=== PATIENT | female | born 1950 | race Caucasian/White ===

== ENCOUNTER 2018-10-11 05:27 | Inpatient (IN) | payer MEDICARE ==
--- NOTE | 2018-09-22 10:13 | HP ---
PREOPERATIVE HISTORY AND PHYSICAL: DATE OF ADMISSION: 10/11/18 ATTENDING PHYSICIAN: Dr. Yaniv Dailey.* (DICTATED BY MARLENA KLEIN) CHIEF COMPLAINT: Right knee pain. HISTORY OF PRESENT ILLNESS: Ms. Gomes is a 68-year-old female known to Dr. Dailey for some time with arthritic problems with her right knee. She has had multiple Synvisc-One viscosupplementation injections and has used ice and antiinflammatory, without significant relief of her arthritic pain. Due to ongoing pain and disability, she now has elected to proceed with right total knee arthroplasty, which is scheduled with Dr. Dailey at [facility] [place] on 10/11/18. PAST MEDICAL HISTORY: Significant for hypertension, hypercholesterolemia, and insomnia. PAST SURGICAL HISTORY: She has had cholecystectomy, hysterectomy, open reduction and internal fixation of right ankle. She has had arthroscopy of the knee. CURRENT MEDICATIONS: 1. Ambien 5 mg p.o. q.h.s. p.r.n. for insomnia. 2. Valsartan 160 mg p.o. daily. 3. Tylenol with Codeine q.h.s. p.r.n. for pain and insomnia. FAMILY HISTORY: Significant for her father having lung cancer, mother with a history of leukemia, brother with cardiac problems with valve replacement and quadruple bypass surgery. SOCIAL HISTORY: The patient lives with her . She is retired from [employer]. She denies use of tobacco or illegal drugs. She states she drinks roughly 2 beers per day. REVIEW OF SYSTEMS: A 14-point review of systems was reviewed with the patient today and is positive for intermittent heart murmur, heart palpitations, and chronic back pain. Otherwise, negative. PHYSICAL EXAMINATION GENERAL: She is alert and oriented x3, in no acute distress, pleasant and cooperative, appropriate mood and affect. VITAL SIGNS: Height 66 inches, weight 181. Pulse 84, BP 158/80. HEENT: PERRLA. EOMI. LUNGS: Clear to auscultation without wheeze. HEART: Murmur auscultated. Regular rate and rhythm. ABDOMEN: Nontender, nondistended, normoactive bowel sounds x4 quadrants. EXTREMITIES: Right Lower Extremity: Her right knee shows no open areas or excoriations. She has motion from less than 5 degrees to about 110 degrees of flexion with pain. There is no instability to varus or valgus stresses. NEUROLOGIC: Sensation and circulation are intact distally. She has active dorsiflexion of the right ankle. Calf is nontender without swelling. IMPRESSION: Advanced osteoarthritis, right knee. PLAN: The patient has failed conservative management and now elects to proceed with right total knee arthroplasty. She is scheduled for surgery with Dr. Yaniv Dailey on 10/11/18 at [facility] [place]. She will undergo medical clearance prior to the procedure. The risks and benefits of the procedure were fully reviewed with Dr. Dailey at his office visit today 09/08/18. MARLENA KLEIN [id number]/ASHLIE #: [id number] MTDD
[~2018-10-11 05:27] MED LIST: Buffered Lidocaine 1% SYRIN* 1 ML/SYRINGE INTRADERM ONE; Lactated Ringers 1000 ML Bag* 1,000 ML IV SCH; Tranexamic Acid 1,000 MG in NS 0.9% 50 ML* (outpatient use) IV SCH
--- OUTSIDE RECORDS SUMMARY | 2018-10-11 05:30 | XMS REPORT | Continuity of Care Document ---
:1950 External Reference #:[id number] Author Name Trisha Babcock M.D. Address [address] [facility] [place] [address] Care Team Providers Name Role Phone Trisha Babcock M.D. 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 Primary Care Physician Unavailable Payers Date Identification Numbers Payment Provider Subscriber Effective: 2017 Policy Number: [id number] [employer] Ppo Kim Orlando PayID: [id number] [id number] [place] [address] Problems Active Problems Provider Date Disorder of urethra Birgit Rodriguez M.D. Onset: 04/25/2011 Insomnia Birgit Rodriguez M.D. Onset: 04/25/2011 Benign essential hypertension Rosendo Woodruff M.D. Onset: 05/31/2013 Essential hypertension Trisha Babcock M.D. Onset: 06/20/2015 Impaired fasting glycaemia Trisha Babcock M.D. Onset: 08/27/2017 Hyperlipidemia Trisha Babcock M.D. Onset: 08/27/2017 Localized, primary osteoarthritis Trisha Babcock M.D. Onset: 09/01/2018 Resolved Problems Adult health examination Birgit Rodriguez M.D. Onset: 04/25/2011 Resolved: 06/20/2015 FH: Cardiovascular disease Birgit Rodriguez M.D. Onset: 04/25/2011 Resolved: 06/20/2015 Acute maxillary sinusitis Rosendo Woodruff M.D. Onset: 2011 Resolved: 06/20/2015 Family History Date Family Member(s) Observation Comments Father due to Throat () - smoker, Cancer at 75 Mother due to Leukemia () - at 72 Onset: (age 38 First Son Colon Cancer Years) First Son due to Colon () Cancer First Brother Good Health twin brother Onset: First Brother Coronary Artery Disease Stents x 3 (02/01/2018) (CAD) Second Brother Hypertension Second Brother Glaucoma Second Brother Coronary Artery Disease (CAD) Third Brother Hypertension Third Brother Coronary Artery Disease (CAD) First Sister Good Health Number of Grandchildren 8 Paternal Grandfather due to Diabetes () Paternal Grandmother due to Heart () - in Disease her 50s Maternal Grandfather due to Aneurysm () - Aortic Social History Type Date Description Comments Sex Unknown Marital Status Patient is Living Situation Lives with spouse Diet Diet is healthy and well balanced--lactose intolerant Sleep occasional insomnia 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 Tobacco Use Start: Unknown End: Former Cigarette Smoker quit in 1996 Unknown 1/2 Pack Daily ETOH Use Consumes 1 beer per day Tobacco Use Start: Unknown End: Patient is a former Unknown smoker Smoking Status Reviewed: 09/01/18 Patient is a former smoker Exercise Exercises sporadically Type/Frequency Current trying to walk Allergies, Adverse Reactions, Alerts Active Allergies Reaction Severity Comments Date NKDA 04/25/2011 Environmental 06/16/2014 Inactive Allergies Nka 12/15/2005 Medications Active Medications SIG Qnty Indications Ordering Provider Date Acetaminophen-Codeine 1-2 tab by mouth 60tabs M17.11 [facility], 2018 #3 bedtime as needed M.D. 300-30mg Tablets Valsartan Take 1 Tablet By 90tabs I10 Nirali Kirkpatrick 02/01/2018 160mg Tablets Mouth Every Day SHAUNNA Franks Ambien 1 by mouth every 30tabs G47.00 [facility], 10/20/2005 5mg Tablets night at bedtime M.D. as needed sleep Ibuprofen 200 2 by mouth twice Unknown 200mg a day Tablets History Medications Hydrochlorothiazide Take 1 Capsule 90caps I10 Nirali Kirkpatrick 02/01/2018 - 12.5mg By Mouth Every SHAUNNA Franks 09/02/2018 Capsules Day In The Morning Valsartan-Hydrochlorothia 1 by mouth every 90tabs I10 Deonna 11/30/2017 - zide day Abigail, 02/01/2018 160-12.5mg Tablets Afnp-C Valsartan Take 1 tablet 90tabs Nirali Kirkpatrick 10/12/2017 - 160mg Tablets daily SHAUNNA Franks 11/30/2017 Losartan Potassium Take 3 Tablets 30tabs Piedad Barba, 10/05/2017 - 25mg Tablets Every Day Failed [facility] 10/06/2017 on Irbesartin 300mg qd Valsartan 1 by mouth every 30tabs Piedad Barba, 10/05/2017 - 80mg Tablets day [employer] 10/12/2017 Irbesartan 2 tab by mouth 90tabs Trisha Mcgrann, 08/26/2017 - 150mg Tablets every day M.D. 10/07/2017 Medrol take dose pack 1units M79.672 Nirali Kirkpatrick 06/23/2017 - 4mg TBPK as directed SHAUNNA Franks 08/25/2017 Irbesartan 1 by mouth every 30tabs [facility], 04/09/2017 - 75mg Tablets day M.D. 08/26/2017 Losartan Potassium Take 3 Tablets 90tabs [facility], 08/22/2016 - 25mg Tablets Every Day M.D. 06/22/2017 Macrobid 1 by mouth twice 10caps N39.0 Lenore 07/06/2015 - 100mg Capsules a day [facility], [facility] 05/13/2016 Prednisone 1 twice a day x 14tabs 729.5 Piedad Barba, 05/22/2014 - 20mg Tablets 7d [facility] 06/16/2014 Bactrim DS 1 po bid for ten 20tabs Rosendo Field 05/27/2013 - 800-160mg Tablets days Esme Woodruff 12/01/2013 Losartan Potassium Take 1 Tablet By 90tabs I10 Trisha Babcock, 05/20/2013 - 25mg Tablets Mouth Every Day M.D. 07/26/2016 Cephalexin one tab po tid 42tabs Rosendo Field 05/29/2012 - 500mg Tablets for 14 days Esme Woodruff 06/25/2012 Fexofenadine 1 po qd 20tabs 381.01 Rosendo Field 05/19/2012 - HCL/Pseudoephedrine HCL Esme Woodruff 06/25/2012 ER 180-240mg Tablets ER 24HR Augmentin one tab po bid 20tabs 461.0 Rosendo Field 2011 - 500-125mg Tablets for ten days Esme Woodruff 05/19/2012 Cipro 1 po bid 14tabs Jesus Chaidez 11/01/2010 - 250mg Tablets Esme Marcum 04/25/2011 Premarin 1 katie per vag 1Month Lenore oliva 04/10/2010 - 0.625mg/GM Cream 2-3 times weekly Esme Arredondo 04/25/2011 Amoxicillin 1 po tid x 5 d 15caps 599.0 Nat Lenz 01/08/2010 - 250mg Capsules Esme Santoyo 04/10/2010 Bactrim DS 1 by mouth twice 14tabs 599.0 Deonna 01/08/2010 - 800-160mg Tablets a day x 7 [facility], 05/21/2014 Afnp-C Ciprofloxacin HCL 1 po bid x 7d 14tabs Dick Koroma 08/23/2009 - 250mg Tablets Esme Magaña 08/30/2009 Pyridium 1 po tid prn 15tabs Dick Koroma 08/23/2009 - 200mg Tablets Esme Magaña 01/08/2010 Augmentin 1 po bid with 20tabs 461.9 Aneta Warner 07/06/2009 - 875mg Tablets ziggy Snyder M.D. 08/23/2009 Bactrim DS 1 po bid 10tabs Lenore oliva 03/28/2009 - 800-160mg Tablets Esme Arredondo 07/06/2009 Elocon apply to 45gm Rosendo Field 03/01/2008 - 0.1% Cream affected area Esme Woodruff 05/21/2014 bid Zyrtec-D 1 po bid prn 60tabs Lenore oliva 03/01/2008 - Tablets ER 12HR Esme Arredondo 07/06/2009 Westcort apply sparingly 60gm 989.5 Piedad Barba, 08/13/2007 - 0.2% Cream bid prn [employer] 03/01/2008 Bactroban apply tid to 30gm 989.5 Piedad Barba, 08/13/2007 - 2% Cream affected area [employer] 03/01/2008 for 3-5D Lab Order please draw Lenore oliva 01/04/2007 - fasting lipidsMaria Elena M.D. 06/10/2007 p33, cbc and TSH dx: hyperlipidemia, HTN Augmentin 1 po bid with 20tabs 461.9 Piedad Jameson, 06/19/2006 - 875mg;125 mg Tablets food X 10D [employer] 12/30/2006 Entex Pse 1 PO Q12 Hours 20tabs 461.9 Sailaja Blas, 04/21/2006 - 600mg;120 mg Tablets prn Head [facility]np-[facility] 05/01/2006 Congestion Augmentin 1 po bid with 20tabs 461.9 Marcelo T. 04/21/2006 - 875mg Tablets food Esme Edwards 08/13/2007 Biaxin 1 PO bid X10 20tabs Deonna 12/15/2005 - 500mg Tablets Days [facility], 12/25/2005 Afnp-C Entex Pse 1 PO Q12 Hours 20tabs Deonna 12/15/2005 - 600mg;120 mg Tablets prn Head [facility], 12/25/2005 Congestion Afnp-C Elocon apply to 30gm Lenore oliva 10/20/2005 - 0.1% Cream affected area Esme Arredondo 06/10/2007 bid Mammogram dx routine Lenore oliva 10/20/2005 - mammogram Esme Arredondo 12/15/2005 Claritin 1 po qd 30caps Unknown - 10mg Capsules 01/08/2010 Sudafed 1-2 po qid prn 30tabs Unknown - 30mg Tablets sinus congestion 01/08/2010 Claritin 1 po qd Unknown - 10mg Tablets 05/21/2014 Zyrtec Allergy 1 by mouth every Unknown - 10mg Tablets day 07/06/2015 Naproxen 1 by mouth twice Unknown - 500mg Tablets a day with food 06/22/2017 Immunizations CPT Code Status Date Vaccine Lot # [id number] Given 12/30/2017 High-Dose, Influenza Virus Vacccine-fluzone 65 and older 82002 Given 08/26/2017 Pneumococcal Immunization [id number] Given 12/11/2016 High-Dose, Influenza Virus Vacccine-fluzone 65 and older 54097 Given 08/22/2016 Pneumococcal Conjugate Vacc-13 [id number] 17616 Given 12/26/2015 Influenza vac quadrivalent preservative free 3yrs and up 63051 Given 05/20/2013 Zostivax [id number] 81347 Given 03/28/2009 Tetanus And Diptheria Adult Preservative Free [id number] >7Yrs 92000 Given 12/30/2006 DO Not Use Split Influenza Virus Vaccine [id number] Vital Signs Date Vital Result Comment 09/14/2018 2:55pm BP Systolic 136 mmHg BP Diastolic 72 mmHg Heart Rate 72 /min Body Temperature 97.7 F Respiratory Rate 16 /min Height 65.5 inches 5'5.50" Weight 193.00 lb BMI (Body Mass Index) 31.6 kg/m2 09/01/2018 7:57am BP Systolic 110 mmHg BP Diastolic 80 mmHg Heart Rate 72 /min Body Temperature 98.2 F Respiratory Rate 18 /min Height 65.5 inches 5'5.50" Weight 191.00 lb BMI (Body Mass Index) 31.3 kg/m2 02/01/2018 6:58pm BP Systolic 144 mmHg BP Diastolic 80 mmHg Heart Rate 68 /min Body Temperature 98.2 F Respiratory Rate 16 /min Height 65.75 inches 5'5.75" measured 06/20/15 Weight 189.00 lb BMI (Body Mass Index) 30.7 kg/m2 01/04/2018 3:14pm BP Systolic 124 mmHg BP Diastolic 68 mmHg Heart Rate 60 /min Body Temperature 97.5 F Respiratory Rate 16 /min Height 65.75 inches 5'5.75" measured 06/20/15 Weight 185.00 lb BMI (Body Mass Index) 30.1 kg/m2 11/30/2017 3:04pm BP Systolic 148 mmHg BP Diastolic 88 mmHg Heart Rate 66 /min Body Temperature 98.0 F Respiratory Rate 16 /min Height 65.75 inches 5'5.75" measured 06/20/15 Weight 186.00 lb BMI (Body Mass Index) 30.2 kg/m2 10/05/2017 3:04pm BP Systolic 144 mmHg BP Diastolic 90 mmHg Heart Rate 64 /min Body Temperature 97.4 F Respiratory Rate 16 /min Height 65.75 inches 5'5.75" measured 06/20/15 Weight 188.00 lb BMI (Body Mass Index) 30.6 kg/m2 08/26/2017 9:05am BP Systolic 160 mmHg BP Diastolic 80 mmHg Heart Rate 74 /min Body Temperature 97.9 F Respiratory Rate 16 /min Height 65.75 inches 5'5.75" measured 06/20/15 Weight 186.00 lb BMI (Body Mass Index) 30.2 kg/m2 06/23/2017 2:39pm BP Systolic 166 mmHg BP Diastolic 82 mmHg Heart Rate 84 /min Body Temperature 98.6 F Height 65.75 inches 5'5.75" measured 06/20/15 Weight 189.00 lb BMI (Body Mass Index) 30.7 kg/m2 08/22/2016 9:36am BP Systolic 138 mmHg BP Diastolic 80 mmHg Heart Rate 78 /min Body Temperature 97.0 F Height 65.75 inches 5'5.75" measured 06/20/15 Weight 190.38 lb BMI (Body Mass Index) 31.0 kg/m2 07/26/2016 9:47am BP Systolic 180 mmHg BP Diastolic 100 mmHg Heart Rate 68 /min Body Temperature 96.9 F Respiratory Rate 16 /min Height 65.75 inches 5'5.75" measured 06/20/15 Weight 190.25 lb BMI (Body Mass Index) 30.9 kg/m2 05/13/2016 3:10pm BP Systolic 120 mmHg BP Diastolic 70 mmHg Heart Rate 60 /min Body Temperature 98.5 F Respiratory Rate 18 /min Height 65.75 inches 5'5.75" measured 06/20/15 Weight 194.00 lb BMI (Body Mass Index) 31.5 kg/m2 07/06/2015 1:37pm BP Systolic 160 mmHg BP Diastolic 90 mmHg Heart Rate 72 /min Body Temperature 96.1 F Respiratory Rate 16 /min Height 65.75 inches 5'5.75" measured 06/20/15 Weight 186.00 lb BMI (Body Mass Index) 30.2 kg/m2 06/20/2015 9:10am BP Systolic 124 mmHg BP Diastolic 80 mmHg Heart Rate 72 /min Body Temperature 97.0 F Respiratory Rate 16 /min Height 65.75 inches 5'5.75" measured 06/20/15 Weight 185.25 lb BMI (Body Mass Index) 30.1 kg/m2 06/16/2014 7:53am BP Systolic 140 mmHg BP Diastolic 80 mmHg Heart Rate 60 /min Body Temperature 96.7 F Respiratory Rate 12 /min Height 66 inches 5'6" Weight 183.00 lb BMI (Body Mass Index) 29.5 kg/m2 05/22/2014 2:47pm BP Systolic 146 mmHg BP Diastolic 80 mmHg Heart Rate 78 /min Body Temperature 97.2 F Height 65.5 inches 5'5.50" Weight 188.00 lb BMI (Body Mass Index) 30.8 kg/m2 01/24/2014 11:39am BP Systolic 130 mmHg BP Diastolic 80 mmHg Heart Rate 68 /min Body Temperature 98.2 F Respiratory Rate 18 /min Height 65.5 inches 5'5.50" 12/02/2013 9:06am BP Systolic 124 mmHg BP Diastolic 90 mmHg Heart Rate 66 /min Body Temperature 95.6 F Height 65.5 inches 5'5.50" Weight 181.50 lb BMI (Body Mass Index) 29.7 kg/m2 05/31/2013 3:00pm BP Systolic 124 mmHg BP Diastolic 82 mmHg Heart Rate 84 /min Body Temperature 95.4 F Height 65.5 inches 5'5.50" Weight 181.38 lb BMI (Body Mass Index) 29.7 kg/m2 05/20/2013 10:44am BP Systolic 146 mmHg BP Diastolic 88 mmHg Heart Rate 64 /min Body Temperature 96.0 F Respiratory Rate 16 /min Height 65.5 inches 5'5.50" Weight 178.25 lb BMI (Body Mass Index) 29.2 kg/m2 06/25/2012 10:23am BP Systolic 142 mmHg BP Diastolic 92 mmHg Heart Rate 78 /min Body Temperature 97.1 F Height 66 inches 5'6" Weight 174.00 lb BMI (Body Mass Index) 28.1 kg/m2 05/19/2012 8:15am BP Systolic 136 mmHg BP Diastolic 80 mmHg Heart Rate 60 /min Body Temperature 98.6 F Respiratory Rate 16 /min Height 66 inches 5'6" Weight 170.00 lb BMI (Body Mass Index) 27.4 kg/m2 2011 9:52am BP Systolic 146 mmHg BP Diastolic 96 mmHg Heart Rate 74 /min Body Temperature 98.6 F Height 66 inches 5'6" Weight 190.00 lb BMI (Body Mass Index) 30.7 kg/m2 04/25/2011 10:27am BP Systolic 122 mmHg BP Diastolic 82 mmHg Heart Rate 68 /min Body Temperature 97.7 F Respiratory Rate 14 /min Height 66 inches 5'6" Weight 192.00 lb BMI (Body Mass Index) 31.0 kg/m2 11/01/2010 1:15pm BP Systolic 140 mmHg BP Diastolic 80 mmHg Heart Rate 64 /min Body Temperature 97.3 F Respiratory Rate 20 /min Height 66 inches 5'6" Weight 191.00 lb BMI (Body Mass Index) 30.8 kg/m2 04/10/2010 10:02am BP Systolic 122 mmHg BP Diastolic 80 mmHg Heart Rate 68 /min Body Temperature 97.7 F Respiratory Rate 15 /min Height 66 inches 5'6" Weight 192.00 lb BMI (Body Mass Index) 31.0 kg/m2 01/08/2010 10:33am BP Systolic 132 mmHg BP Diastolic 100 mmHg Heart Rate 68 /min Body Temperature 97.7 F Height 66 inches 5'6" Weight 187.00 lb BMI (Body Mass Index) 30.2 kg/m2 08/23/2009 10:12am BP Systolic 150 mmHg BP Diastolic 88 mmHg Heart Rate 80 /min Body Temperature 97.8 F Height 66 inches 5'6" Weight 188.00 lb BMI (Body Mass Index) 30.3 kg/m2 07/06/2009 10:44am BP Systolic 162 mmHg BP Diastolic 90 mmHg Heart Rate 60 /min Body Temperature 97.6 F Respiratory Rate 12 /min Weight 190.00 lb 03/28/2009 8:55am BP Systolic 130 mmHg BP Diastolic 80 mmHg Heart Rate 80 /min Body Temperature 97.8 F Height 66 inches 5'6" Weight 185.00 lb BMI (Body Mass Index) 29.9 kg/m2 03/01/2008 9:16am BP Systolic 120 mmHg BP Diastolic 80 mmHg Heart Rate 80 /min Body Temperature 97.5 F Height 66 inches 5'6" Weight 174.00 lb BMI (Body Mass Index) 28.1 kg/m2 08/13/2007 4:02pm BP Systolic 130 mmHg BP Diastolic 78 mmHg Heart Rate 78 /min Respiratory Rate 13 /min Height 66 inches 5'6" 06/10/2007 2:42pm BP Systolic 142 mmHg BP Diastolic 80 mmHg Heart Rate 84 /min Body Temperature 97.3 F Height 66 inches 5'6" 12/30/2006 1:57pm BP Systolic 128 mmHg BP Diastolic 80 mmHg Heart Rate 88 /min Body Temperature 97.9 F Height 66 inches 5'6" Weight 181.00 lb BMI (Body Mass Index) 29.2 kg/m2 06/19/2006 1:06pm BP Systolic 120 mmHg BP Diastolic 76 mmHg Heart Rate 74 /min Body Temperature 97.6 F Height 66 inches 5'6" Weight 188.00 lb BMI (Body Mass Index) 30.3 kg/m2 04/21/2006 1:03pm Heart Rate 72 /min Body Temperature 98.5 F Height 66 inches 5'6" Weight 190.00 lb BMI (Body Mass Index) 30.7 kg/m2 12/15/2005 1:42pm BP Systolic 134 mmHg BP Diastolic 70 mmHg Heart Rate 80 /min Body Temperature 97.7 F Height 66 inches 5'6" Weight 185.00 lb BMI (Body Mass Index) 29.9 kg/m2 10/20/2005 2:29pm BP Systolic 110 mmHg BP Diastolic 66 mmHg Heart Rate 80 /min Height 66 inches 5'6" Weight 183.00 lb BMI (Body Mass Index) 29.5 kg/m2 Results Test Date Facility Test Result H/L Range Note Electrolytes Profile 09/10/2018 [facility]) Sodium 131 mEq/L Low 134-149 1 Potassium 4.5 mEq/L 3.6-5.5 Chloride 89 mEq/L Low 94-112 2 Carbon Dioxide 30 mEq/L 21-32 Anion Gap 16.5 7.0-34.0 Comprehensive Metabolic 09/01/2018 [facility]) Sodium 123 mEq/L Low 134-149 3 Prof Potassium 4.7 mEq/L 3.6-5.5 Chloride 84 mEq/L Low 94-112 4 Carbon Dioxide 24 mEq/L 21-32 Glucose 113 mg/dL High 70-105 5 BUN 9 mg/dL 6-26 Creatinine 0.7 mg/dL 0.6-1.4 BUN/Creat Ratio 12.9 CALC 8.0-36.0 Calcium 9.9 mg/dL 8.6-10.2 Total Protein 7.3 g/dL 6.4-8.3 Albumin 4.7 g/dL 3.8-5.5 Globulin 2.6 g/dL 2.0-4.8 A/G Ratio 1.8 CALC 0.6-2.3 Alk. Phosphatase 56 U/L 30-110 Alt (SGPT) 10 U/L 7-35 Ast (Sgot) 17 U/L 5-34 Total Bilirubin 0.8 mg/dL 0.2-1.3 GFR Non- >60 ml/min/1.73m^ >=60 GFR >60 ml/min/1.73m^ >=60 Lipid Profile 09/01/2018 [facility]) Cholesterol 222 mg/dL High 120-200 Triglycerides 84 mg/dL 30-200 HDL Cholesterol 72 mg/dL 30-85 LDL (Calculated) 133 CALC High 0-129 VLDL Cholesterol 17 mg/dL 0-50 HDL Risk Factor 3.1 CALC 0.0-4.4 Laboratory test finding 09/01/2018 [facility]) TSH 5.04 mIU/L 0.50-6.00 CBC Electronic a 09/01/2018 [facility]) WBC 5.8 x10^3/UL 4.0- 10.0 RBC 4.26 x10^6/UL 3.93-6.00 HGB 13.1 g/dL 12.0-17.0 HCT 37 % 35-50 MCV 86.6 fL 80.0-95.0 MCH 30.8 pg 25.6-32.2 MCHC 35.5 g/dL 32.2-36.0 RDW-CV 12.5 % 11.6-14.4 PLT 353 x10^3/UL 163-400 MPV 8.2 fL Low 9.4-12.4 Jose Alejandro# 3.85 x10^3/UL 1.56-6.13 Lymph# 1.28 x10^3/UL 1.18-3.74 Bullock# 0.57 x10^3/UL 0.24-0.82 Eos # 0.1 x10^3/UL 0.0-0.5 Baso # 0.02 x10^3/UL 0.01-0.08 Jose Alejandro% 66.4 % 34.0-70.0 Lymph % 22.1 % 20.0-52.0 Bullock% 9.8 % 5.0-12.0 Eos% 0.9 % 0.7-7.0 Baso% 0.3 % 0.1-1.2 Laboratory test 09/01/2018 [facility] [place] Hemoglobin A1c 5.7 % 4.1-5.7 finding (607)- - (a) Comprehensive 08/26/2017 [facility]) Sodium 139 mEq/L 134-149 Metabolic Prof Potassium 4.3 mEq/L 3.6-5.5 Chloride 101 mEq/L 94-112 Carbon Dioxide 29 mEq/L 21-32 Glucose 112 mg/dL High 70-105 BUN 14 mg/dL 6-26 Creatinine 0.7 mg/dL 0.6-1.4 BUN/Creat Ratio 20.0 CALC 8.0-36.0 Calcium 9.4 mg/dL 8.6-10.2 Total Protein 7.1 g/dL 6.4-8.3 Albumin 4.4 g/dL 3.8-5.5 Globulin 2.7 g/dL 2.0-4.8 A/G Ratio 1.6 CALC 0.6-2.3 Alk. Phosphatase 60 U/L 30-110 Alt (SGPT) 8 U/L 7-35 Ast (Sgot) 12 U/L 5-34 Total Bilirubin 0.5 mg/dL 0.2-1.3 GFR Non- >60 ml/min/1.73m^ >=60 GFR >60 ml/min/1.73m^ >=60 Lipid Profile 08/26/2017 [facility]) Cholesterol 233 mg/dL High 120-200 Triglycerides 109 mg/dL 30-200 HDL Cholesterol 72 mg/dL 30-85 LDL (Calculated) 139 CALC High 0-129 VLDL Cholesterol 22 mg/dL 0-50 HDL Risk Factor 3.2 CALC 0.0-4.4 Laboratory test 08/26/2017 [facility]) Free T4 1.20 ng/dL 0.75- 1.54 finding TSH 3.86 mIU/L 0.50-6.00 CBC Electronic a 08/26/2017 [facility]) WBC 4.7 x10^3/UL 4.0- 10.0 RBC 4.66 x10^6/UL 3.93-6.00 HGB 14.2 g/dL 12.0-17.0 HCT 42 % 35-50 MCV 89.7 fL 80.0-95.0 MCH 30.5 pg 25.6-32.2 MCHC 34.0 g/dL 32.2-36.0 RDW-CV 13.3 % 11.6-14.4 PLT 364 x10^3/UL 163-400 MPV 9.1 fL Low 9.4-12.4 Jose Alejandro# 3.00 x10^3/UL 1.56-6.13 Lymph# 1.19 x10^3/UL 1.18-3.74 Bullock# 0.45 x10^3/UL 0.24-0.82 Eos # 0.0 x10^3/UL 0.0-0.5 Baso # 0.01 x10^3/UL 0.01-0.08 Jose Alejandro% 63.8 % 34.0-70.0 Lymph % 25.3 % 20.0-52.0 Bullock% 9.6 % 5.0-12.0 Eos% 0.9 % 0.7-7.0 Baso% 0.2 % 0.1-1.2 Ua - Micro ([facility]) 08/22/2016 [facility] Medicine Appearance cloudy (607)- - Color yellow Glucose, Urine (Fma/CMC/CTX) neg Bilirubin neg Ketones neg SP Grav 1.015 Blood small # PH 7.0 Protein neg Urobil 0.2 Nitrite positive # Leukocytes ([facility]ma/CMC/Centrex) trace # Hyaline - /Lpf Granular - /Lpf WBC ([facility]ma,Centrex) 6-8 # RBC 3-4 ## Mucus (Fma/CBC/Centrex) - /Lpf Epith occass /Lpf # Bacteria 4+ /Hpf # Amorphous ([facility]ma/CMC/Centrex) - /Lpf Crystals, Fluid ([facility]ma/CMC/CTX) - Z#Comments - Complete Blood Count 08/22/2016 [facility](a) WBC 5.5 x10^3/UL 3.6 -9.6 RBC 4.25 x10^6/UL 3.90-5.70 HGB 13.3 g/dL 12.1-17.2 HCT 39 % 36-50 MCV 91.0 fL 82.2-97.4 MCH 31.3 pg 27.6-33.3 MCHC 34.2 g/dL 33.0-35.5 RDW 13.9 % High 11.6-13.7 PLT 388 x10^3/UL 150-400 MPV 6.9 fL Low 7.4-10.4 Gran # 3.8 x10^3/UL 1.5-7.2 Lymph# 1.4 x10^3/UL 0.7-4.9 Bullock# 0.3 x10^3/UL 0.1-0.9 Gran % 67.1 % 42.2-75.2 Lymph % 27.0 % 20.5-51.1 Bullock% 5.9 % 1.7-9.3 Comprehensive Metabolic 08/22/2016 [facility]) Sodium 137 mEq/L 134-149 Prof Potassium 4.0 mEq/L 3.6-5.5 Chloride 100 mEq/L 94-112 Carbon Dioxide 25 mEq/L 21-32 Glucose 110 mg/dL High 70-105 BUN 13 mg/dL 6-26 Creatinine 0.7 mg/dL 0.6-1.4 BUN/Creat Ratio 18.6 CALC 8.0-36.0 Calcium 9.3 mg/dL 8.6-10.2 Total Protein 6.8 g/dL 6.4-8.3 Albumin 4.3 g/dL 3.8-5.5 Globulin 2.5 g/dL 2.0-4.8 A/G Ratio 1.7 CALC 0.6-2.3 Alk. Phosphatase 57 U/L 30-110 Alt (SGPT) 11 U/L 7-35 Ast (Sgot) 17 U/L 5-34 Total Bilirubin 0.6 mg/dL 0.2-1.3 GFR Non- >60 ml/min/1.73m^ >=60 GFR >60 ml/min/1.73m^ >=60 Lipid Profile 08/22/2016 [facility]) Cholesterol 233 mg/dL High 120-200 Triglycerides 81 mg/dL 30-200 HDL Cholesterol 72 mg/dL 30-85 LDL (Calculated) 145 CALC High 0-129 VLDL Cholesterol 16 mg/dL 0-50 HDL Risk Factor 3.2 CALC 0.0-4.4 Urine Culture 07/06/2015 [facility] Urine Culture, Final report Abnormal 6 , 7 Routine [address] [facility] [place] [address] (607)- - Result 1 Escherichia coli Abnormal 8 Antimicrobial Susceptibility See Comment: 9 Ua - Micro ([facility]) 07/06/2015 [facility] Appearance CLEAR (607)- - Color YELLOW Glucose, Urine ([facility]/CMC/CTX) NEG Bilirubin NEG Ketones NEG SP Grav <=1.005 Blood TRACE-INTACT # PH 6.5 Protein NEG Urobil 0.2 Nitrite NEG Leukocytes ([facility]/CMC/Centrex) TRACE # Hyaline - /Lpf Granular - /Lpf WBC ([facility],Centrex) 15-20 # RBC 3-5 # Mucus ([facility]ma/CBC/Centrex) - /Lpf Epith RARE /Lpf # Bacteria 2+ /Hpf # Amorphous ([facility]ma/CMC/Centrex) - /Lpf Crystals, Fluid ([facility]/CMC/CTX) - Z#Comments - Comprehensive Metabolic 06/20/2015 [facility]) Sodium 140 mEq/L 134-149 Prof Potassium 5.0 mEq/L 3.6-5.5 Chloride 103 mEq/L 94-112 Carbon Dioxide 24 mEq/L 21-32 Glucose 105 mg/dL 70-105 BUN 14 mg/dL 6-26 Creatinine 0.7 mg/dL 0.6-1.4 BUN/Creat Ratio 20.0 CALC 8.0-36.0 Calcium 10.1 mg/dL 8.6-10.2 Total Protein 7.3 g/dL 6.4-8.3 Albumin 4.2 g/dL 3.8-5.5 Globulin 3.1 g/dL 2.0-4.8 A/G Ratio 1.4 CALC 0.6-2.3 Alk. Phosphatase 56 U/L 30-110 Alt (SGPT) 11 U/L 7-35 Ast (Sgot) 16 U/L 5-34 Total Bilirubin 0.5 mg/dL 0.2-1.3 GFR Non- >60 ml/min/1.73m^ >=60 GFR >60 ml/min/1.73m^ >=60 Lipid Profile 06/20/2015 [facility]) Cholesterol 236 mg/dL High 120-200 Triglycerides 75 mg/dL 30-200 HDL Cholesterol 70 mg/dL 30-85 LDL (Calculated) 151 CALC High 0-129 VLDL Cholesterol 15 mg/dL 0-50 HDL Risk Factor 3.4 CALC 0.0-4.4 Complete Blood Count 06/20/2015 [facility]) WBC 4.9 x10^3/UL 3.6 -9.6 RBC 4.70 x10^6/UL 3.90-5.70 HGB 14.7 g/dL 12.1-17.2 HCT 43 % 36-50 MCV 92.0 fL 82.2-97.4 MCH 31.3 pg 27.6-33.3 MCHC 34.0 g/dL 33.0-35.5 RDW 13.1 % 11.6-13.7 PLT 370 x10^3/UL 150-400 MPV 7.2 fL Low 7.4-10.4 Gran # 3.3 x10^3/UL 1.5-7.2 Lymph# 1.4 x10^3/UL 0.7-4.9 Bullock# 0.2 x10^3/UL 0.1-0.9 Gran % 65.9 % 42.2-75.2 Lymph % 29.6 % 20.5-51.1 Bullock% 4.5 % 1.7-9.3 Laboratory test 04/01/2015 [facility] Lab Test urine C&S finding (607)- - Laboratory test 12/08/2014 [facility] Surgical SEE RESULT 10 finding Pathology BELOW Comprehensive 06/16/2014 Saúl Rosenberg(a) Sodium 134 mEq/L 134-14 Metabolic Prof 9 Potassium 4.3 mEq/L 3.6-5.5 Chloride 97 mEq/L 94-112 Carbon Dioxide 24 mEq/L 21-32 Glucose 105 mg/dL 70-105 BUN 9 mg/dL 6-26 Creatinine 0.7 mg/dL 0.6-1.4 BUN/Creat Ratio 12.9 CALC 8.0-36.0 Calcium 9.9 mg/dL 8.6-10.2 Total Protein 7.4 g/dL 6.4-8.3 Albumin 4.2 g/dL 3.8-5.5 Globulin 3.2 g/dL 2.0-4.8 A/G Ratio 1.3 CALC 0.6-2.3 Alk. Phosphatase 56 U/L 30-110 Alt (SGPT) 16 U/L 7-35 Ast (Sgot) 18 U/L 5-34 Total Bilirubin 0.6 mg/dL 0.2-1.3 Lipid Profile 06/16/2014 Hays Ondina(a) Cholesterol 257 mg/dL High 120-200 Triglycerides 113 mg/dL 30-200 HDL Cholesterol 73 mg/dL 30-85 LDL (Calculated) 161 CALC High 0-129 VLDL Cholesterol 23 mg/dL 0-50 HDL Risk Factor 3.5 CALC 0.0-4.4 Laboratory test 01/24/2014 [facility] Urine Culture Escherichia coli 11 finding [address] [place] [id number] [phone] Ua - Micro (Fma) 01/24/2014 [facility] Medicine Appearance CLEAR (607)- - Color YELLOW Glucose, Urine (Fma/CMC/CTX) NEG Bilirubin NEG Ketones NEG SP Grav 1.015 Blood SMALL # PH 7.0 Protein NEG Urobil 0.2 Nitrite POSITIVE # Leukocytes (Fma/CMC/[facility]) MODERATE # Hyaline - /Lpf Granular - /Lpf WBC (Fma,[facility]) 20-25 # RBC 5-8 # Mucus (Fma/CBC/[facility]) - /Lpf Epith RARE /Lpf # Bacteria 3+ /Hpf # Amorphous (Fma/CMC/[facility]) - /Lpf Crystals, Fluid (Fma/CMC/CTX) - Z#Comments - Basic Metabolic Profile 05/31/2013 Hays Ondina(a) Sodium 133 mEq/L Low 134-149 Potassium 5.2 mEq/L 3.6-5.5 Chloride 96 mEq/L 94-112 Carbon Dioxide 25 mEq/L 21-32 Glucose 105 mg/dL 70-105 BUN 11 mg/dL 6-26 Creatinine 0.9 mg/dL 0.6-1.4 BUN/Creat Ratio 12.2 CALC 8.0-36.0 Calcium 9.7 mg/dL 8.6-10.2 Ua - Micro (Fma) 05/20/2013 [facility] Medicine Appearance clear (607)- - Color yellow Glucose, Urine (Fma/CMC/CTX) neg Bilirubin neg Ketones neg SP Grav 1.015 Blood trace-intact # PH 7.5 Protein neg Urobil 0.2 Nitrite positive # Leukocytes (Fma/CMC/[facility]) small # Hyaline - /Lpf Granular - /Lpf WBC (Fma,[facility]) 9-10 # RBC 3-4 # Mucus (Fma/CBC/[facility]) - /Lpf Epith few /Lpf # Bacteria 3-4+ /Hpf # Amorphous (Fma/CMC/[facility]) - /Lpf Crystals, Fluid (Fma/CMC/CTX) - Z#Comments - Laboratory test 05/20/2013 [facility] Urine Escherichia coli [address] [facility] Culture [place], [place] [id number] [phone] Comprehensive 05/20/2013 Hays Ondina(fma) Sodium 139 mEq/L 134- Metabolic Prof 149 Potassium 4.5 mEq/L 3.6-5.5 Chloride 97 mEq/L 94-112 Carbon Dioxide 27 mEq/L 21-32 Glucose 109 mg/dL High 70-105 13 BUN 12 mg/dL 6-26 Creatinine 0.7 mg/dL 0.6-1.4 BUN/Creat Ratio 17.1 CALC 8.0-36.0 Calcium 10.2 mg/dL 8.6-10.2 Total Protein 7.6 g/dL 6.3-8.1 Albumin 4.9 g/dL 3.8-5.5 Globulin 2.7 g/dL 2.0-4.8 A/G Ratio 1.8 CALC 0.6-2.3 Alk. Phosphatase 53 U/L 30-110 Alt (SGPT) 8 U/L 7-35 Ast (Sgot) 14 U/L 5-34 Total Bilirubin 0.4 mg/dL 0.2-1.3 Lipid Profile 05/20/2013 Hays Ondina(fma) Cholesterol 259 mg/dL High 120-200 Triglycerides 89 mg/dL 30-200 HDL Cholesterol 71 mg/dL 30-85 LDL (Calculated) 170 CALC High 0-129 VLDL Cholesterol 18 mg/dL 0-50 HDL Risk Factor 3.6 CALC 0.0-4.4 Complete Blood Count 05/20/2013 Hays Ondina(fma) WBC 5.2 x10^3/UL 3.6 -9.6 RBC 4.40 x10^6/UL 3.90-5.70 HGB 13.4 g/dL 12.1-17.2 HCT 40 % 36-50 MCV 91.0 fL 82.2-97.4 MCH 30.5 pg 27.6-33.3 MCHC 33.4 g/dL 33.0-35.5 RDW 12.3 % 11.6-13.7 PLT 352 x10^3/UL 150-400 MPV 7.1 fL Low 7.4-10.4 Gran # 3.7 x10^3/UL 1.5-7.2 Lymph# 1.3 x10^3/UL 0.7-4.9 Bullock# 0.2 x10^3/UL 0.1-0.9 Gran % 69.4 % 42.2-75.2 Lymph % 25.8 % 20.5-51.1 Bullock% 4.8 % 1.7-9.3 Laboratory test finding 06/25/2012 [facility] [place] Quickstrep negative Negative (607)- - Throat - Beta Strep Fma neg @ 48 hrs Laboratory test 06/18/2012 [facility] Urine Culture No growth. finding [address] [place], [place] [id number] [phone] Comprehensive 05/19/2012 Hyas Ondina(fma) Albumin 4.3 g/dL 3.8-5. Metabolic Prof 5 Alk. Phos. 60 U/L 30-110 Alt (SGPT) 8 U/L 7-35 Ast (Sgot) 14 U/L 5-34 BUN 11 mg/dL 6-26 Calcium 9.0 mg/dL 8.6-10.2 Chloride 100 mEq/L 94-112 Creatinine 0.8 mg/dL 0.6-1.4 Carbon Dioxide 32 mEq/L 21-32 Glucose 102 mg/dL 70-105 Sodium 139 mEq/L 134-149 Total Bilirubin 0.5 mg/dL 0.2-1.3 Total Protein 6.7 g/dL 6.3-8.1 Potassium 4.4 mEq/L 3.6-5.5 Globulin 2.4 g/dL 2.0-4.8 A/G Ratio 1.8 Calc 0.6-2.3 BUN/Creat Ratio 14.0 Calc 8.0-36.0 Lipid Profile 05/19/2012 Hays Ondina(fma) Cholesterol 215 mg/dL High 120-200 HDL 70 mg/dL 30-85 Triglycerides 95 mg/dL 30-200 HDL Risk Factor 3.1 CALC 0.0-4.4 LDL (Calculated) 125 CALC 0-129 VLDL (Calculated) 19 mg/dL 0-50 Laboratory test 05/19/2012 [facility] Urine Culture Escherichia coli 14 finding [address] [place] [address] [phone] Ua - Micro (a) 05/19/2012 [facility] [place] Appearance clear (607)- - Color yellow Glucose, Urine (Fma/CMC/CTX) - Bilirubin - Ketones - SP Grav 1.020 Blood small # PH 8.0 Protein - Urobil 0.2 Nitrite positive # Leukocytes (Fma/CMC/[facility]) small # Hyaline - /Lpf Granular - /Lpf WBC (Fma,[facility]) 6-8 # RBC 1-2 # Mucus (Fma/CBC/[facility]) - /Lpf Epith few /Lpf # Bacteria 3+ /Hpf # Amorphous (Fma/CMC/[facility]) - /Lpf Crystals, Fluid (Fma/CMC/CTX) - Z#Comments - CBC Electronic (a) 05/19/2012 [facility] [place] WBC 4.7 3.6-9.6 (607)- - RBC 4.28 3.90-5.70 Hemoglobin (Fma/CMC/CTX) 13.4 g/dL 12.1 - 17.2 Hematocrit (Fma/CMC/CTX) 39.2 % 36.1 - 50.3 Platelets 351 10^3/ul 150-400 Lymph% 25.8 20.5-51.1 Mixed% 5.7 Neutrophils % 68.5 Mean Corpuscular Vol 91 82.2-97.4 Mean Corpuscular Hemoglobin 31.3 27.6-33.3 Mean Corpuscular Hemo Concen 34.3 32.0-36.0 RDW 11.5 Low 11.6-13.7 Mean Platelet Volume 6.6 6.5-11.0 Ua - Micro (Fma) 04/25/2011 [facility] [place] Appearance CLEAR (607)- - Color YELLOW Glucose NEG Bilirubin NEG Ketones TRACE SP Grav 1.015 Blood SMALL # PH 6.5 Protein NEG Urobil 0.2 Nitrite NEG Leukocytes (Fma/CMC/[facility]rex) MOD # WBC (Fma,[facility]) 10-15 # RBC 3-5 # Epith OCC /Lpf # Bacteria RARE /Hpf # Laboratory test 04/25/2011 [facility] [place] Urine Culture negative finding (607)- - (Fma/CMC) Comprehensive 04/25/2011 [facility] Ondina(a) Albumin 4.6 g/dL 3.8-5.5 Metabolic Prof Alk. Phos. 50 U/L 30-110 Alt (SGPT) 15 U/L 7-35 Ast (Sgot) 19 U/L 5-34 BUN 17 mg/dL 6-26 Calcium 9.5 mg/dL 8.6-10.2 Chloride 99 mEq/L 94-112 Creatinine 0.8 mg/dL 0.6-1.4 Carbon Dioxide 28 mEq/L 21-32 Glucose 105 mg/dL 70-105 Sodium 142 mEq/L 134-149 Total Bilirubin 0.3 mg/dL 0.2-1.3 Total Protein 6.9 g/dL 6.3-8.1 Potassium 4.4 mEq/L 3.6-5.5 Globulin 2.3 g/dL 2.0-4.8 A/G Ratio 2.0 Calc 0.6-2.2 BUN/Creat Ratio 19.6 Calc 8.0-36.0 Lipid Profile 04/25/2011 Hays Ondina(a) Cholesterol 199 mg/dL 120- 200 HDL 53 mg/dL 30-85 Triglycerides 113 mg/dL 30-200 HDL Risk Factor 3.7 CALC 0.0-4.0 LDL (Calculated) 123 CALC 0-129 VLDL (Calculated) 23 mg/dL 0-50 Ua - Micro (a) 11/01/2010 [facility] Medicine Appearance CLEAR (607)- - Color YELLOW Glucose NEG Bilirubin NEG Ketones NEG SP Grav <=1.005 Blood SMALL # PH 6.0 Protein NEG Urobil 0.2 Nitrite NEG Leukocytes (Fma/CMC/[facility]) NEG Hyaline - /Lpf Granular - /Lpf WBC (Fma,[facility]) 3-5 # RBC 3-5 # Mucus - /Lpf Epith - /Lpf Bacteria 1+ /Hpf # Amorphous - /Lpf Crystals, Fluid (Fma/CMC/CTX) - Z#Comments - Comprehensive Metabolic 04/10/2010 Hays Ondina(a) Albumin 4.7 g/dL 3.8-5.5 Prof Alk. Phos. 53 U/L 30-110 Alt (SGPT) 7 U/L 7-35 Ast (Sgot) 14 U/L 5-34 BUN 15 mg/dL 6-26 Calcium 9.7 mg/dL 8.6-10.2 Chloride 98 mEq/L 94-112 Creatinine 0.7 mg/dL 0.6-1.4 Carbon Dioxide 27 mEq/L 21-32 Glucose 88 mg/dL 70-105 Sodium 136 mEq/L 134-149 Total Bilirubin 0.3 mg/dL 0.2-1.3 Total Protein 7.0 g/dL 6.3-8.1 Potassium 4.4 mEq/L 3.6-5.5 Globulin 2.3 g/dL 2.0-4.8 A/G Ratio 2.0 Calc 0.6-2.2 BUN/Creat Ratio 20.2 Calc 8.0-36.0 Laboratory test 04/10/2010 Saúl Odnina([facility]) TSH 3.42 mIU/L 0.50-6.00 finding Lipid Profile 04/10/2010 Saúl Rosenberg([facility]) Cholesterol 230 mg/dL High 120-200 HDL 64 mg/dL 30-85 Triglycerides 101 mg/dL 30-200 HDL Risk Factor 3.6 CALC Low 4.2-7.0 LDL (Calculated) 146 CALC High 0-129 VLDL (Calculated) 20 mg/dL 0-50 Ua - Micro ([facility]) 04/10/2010 [facility] Appearance CLEAR (607)- - Color YELLOW Glucose, Urine (Fma/CMC/CTX) NEG Bilirubin NEG Ketones NEG SP Grav 1.015 Blood SMALL # PH 7.0 Protein NEG Urobil 0.2 Nitrite NEG Leukocytes (Fma/CMC/[facility]rex) TRACE # Hyaline - /Lpf Granular - /Lpf WBC (Fma,[facility]rex) 2-3 RBC 3-5 Mucus (Fma/CBC/[facility]) - /Lpf Epith OCC /Lpf Bacteria TRACE /Hpf Amorphous (Fma/CMC/[facility]) - /Lpf Crystals, Fluid (Fma/CMC/CTX) - Z#Comments - CBC ([facility]) 04/10/2010 [facility] Medicine WBC 5.0 3.6-9.6 (607)- - RBC 4.33 3.90-5.70 Hemoglobin (Fma/CMC/CTX) 13.8 g/dL 12.1 - 17.2 Hematocrit (Fma/CMC/CTX) 40.4 % 36.1 - 50.3 Platelets 325 10^3/ul 150-400 Lymph% 20.1 Low 20.5-51.1 Mixed% 5.0 Neutrophils % 74.9 Mean Corpuscular Vol 93 82.2-97.4 Mean Corpuscular Hemoglobin 32.0 27.6-33.3 Mean Corpuscular Hemo Concen 34.3 32.0-36.0 RDW 11.6 11.6-13.7 Mean Platelet Volume 7.8 6.5-11.0 Laboratory 04/10/2010 [facility] Thin Prep SEE NOTE 15 test finding [address] W/HPV(Lsil/WINSTON/Asc) [place] [address] [phone] Laboratory 01/08/2010 [facility] Urine Culture Escherichia [address] [facility] [place] [address] [phone] Ua - Micro 01/08/2010 [facility] [place] Appearance CLEAR (Fma) (607)- - Color YELLOW Glucose, Urine (Fma/CMC/CTX) NEG Bilirubin NEG Ketones NEG SP Grav 1.015 Blood SMALL # PH 7.5 Protein NEG Urobil 0.2 Nitrite NEG Leukocytes (Fma/CMC/[facility]) TRACE # Hyaline - /Lpf Granular - /Lpf WBC (Fma,[facility]) 2-4 # RBC 6-8 # Mucus (Fma/CBC/[facility]) - /Lpf Epith FEW /Lpf # Bacteria 2+ /Hpf # Amorphous (Fma/CMC/[facility]) - /Lpf Crystals, Fluid (Fma/CMC/CTX) - Z#Comments - Surgical Pathology 10/12/2009 [facility] Surgical Pathology <SEE 17 NOTE> Culture Stool 09/18/2009 [facility] C. Difficile Toxin BROWN 18 A B Laboratory test 09/18/2009 [facility] C. Difficile Toxin TEST LIMITATIONS <SEE 19 finding A B NOTE> Shiga Toxin Confirm [facility] FINAL [facility]ENTIF[place] <SEE NOTE> 20 Comp Metabolic Panel 09/18/2009 [facility] Sodium 140 mmol/L 135-145 21 Potassium 3.6 mmol/L 3.5-5.0 Chloride 108 mmol/L 101-111 Co2 (Carbon Dioxide) 24.0 mmol/L 22-32 Anion Gap 8.0 mmol/L 2-11 22 Glucose 116 mg/dL High 70-100 23 BUN 6 mg/dL 6-24 Creatinine 0.70 mg/dL 0.50-1.40 One Over Creatinine 1.40 BUN/Creatinine Ratio 8.6 8-20 Calcium 9.2 mg/dL 8.1-9.9 24 Total Protein 7.1 GM/DL 6.2-8.1 Albumin 3.7 GM/DL 3.6-5.4 Globulin 3.4 GM/DL 2-4 Albumin/Globulin Ratio 1.1 1-3 Bilirubin Total 0.6 mg/dL 0.4-1.5 25 Alkaline Phosphatase 58 U/L 30-110 Alt (SGPT) 11 U/L Low 14-54 Ast (Sgot) 21 U/L 12-42 eGFR Non- 91.3 > 60 eGFR 110.5 > 60 26 CBC With Manual Diff 09/18/2009 [facility] White Blood Count 10.1 CUMM 4.8- 10.8 Red Cell Count 4.53 CUMM 4.2-5.4 Hemoglobin 14.1 g/dL 12.0-16.0 Hematocrit 42 % 35-47 Mean Corpuscular Volume 92 um3 79-97 Mean Corpuscular Hemoglob 31 pg 27-31 Mean Corpuscular HGB Cone 34 g/dL 32-36 Redcell Distribution WDTH 13 % 10.5-15 Platelet Count 299 CUMM 150-450 Mean Platelet Volume 7.4 um3 7.4-10.4 Polysegmented Neutrophil 78 % 38-83 Lymphocyte 15 % Low 25-47 Monocyte 5 % 0-13 Eosinophil 2 % 0-6 Absolute Neutrophil Count 7.8 Anisocytosis SLIGHT Urinalysis W/Microscopic 09/18/2009 [facility] Ua Color YELLOW Yellow Appearance-Urine CLEAR Clear Specific [place]-Ur 1.011 1.010-1.030 Esterase-Urine NEGATIVE Negative Nitrite NEGATIVE Negative [id number] NEGATIVE Negative Protein-Urine NEGATIVE Negative PH-Urine 6.0 5-9 Blood-Urine 1+ Abnormal Negative Ketones-Urine 1+ Abnormal Negative Bilirubin-Ur NEGATIVE Negative Glucose-Urine NEGATIVE Negative WBC-Urine 0-2 0-5 RBC-Urine 3-6 0-2 Mucus Urine SMALL None Epith Cells-Ur RARE None Bacteria-Urine FEW None Amorphous Sed-U FEW None Laboratory test 09/07/2009 [facility] Urine Culture NEGATIVE finding (607)- - (Fma/[facility]) Comp Metabolic 08/23/2009 [facility] Sodium 135 mmol/L 135-145 Panel Potassium 3.2 mmol/L Low 3.5-5.0 Chloride 101 mmol/L 101-111 Co2 (Carbon Dioxide) 25.0 mmol/L 22-32 Anion Gap 9.0 mmol/L 2-11 27 Glucose 129 mg/dL High 70-100 28 BUN 8 mg/dL 6-24 Creatinine 0.80 mg/dL 0.50-1.40 One Over Creatinine 1.20 BUN/Creatinine Ratio 10.0 8-20 Calcium 8.7 mg/dL 8.1-9.9 29 Total Protein 6.5 GM/DL 6.2-8.1 Albumin 3.5 GM/DL Low 3.6-5.4 Globulin 3.0 GM/DL 2-4 Albumin/Globulin Ratio 1.2 1-3 Bilirubin Total 0.8 mg/dL 0.4-1.5 30 Alkaline Phosphatase 59 U/L 30-110 Alt (SGPT) 10 U/L Low 14-54 Ast (Sgot) 20 U/L 12-42 eGFR Non- 78.3 > 60 eGFR 94.7 > 60 31 CBC With Manual Diff 08/23/2009 [facility] White Blood Count 9.0 CUMM 4.8-10.8 Red Cell Count 3.94 CUMM Low 4.2-5.4 Hemoglobin 12.4 g/dL 12.0-16.0 Hematocrit 36 % 35-47 Mean Corpuscular Volume 92 um3 79-97 Mean Corpuscular Hemoglob 31 pg 27-31 Mean Corpuscular HGB Cone 34 g/dL 32-36 Redcell Distribution WDTH 14 % 10.5-15 Platelet Count 258 CUMM 150-450 Mean Platelet Volume 6.9 um3 Low 7.4-10.4 Polysegmented Neutrophil 79 % 38-83 Band Neutrophil 8 % 0-8 Lymphocyte 9 % Low 25-47 Monocyte 4 % 0-13 Absolute Neutrophil Count 7.8 RBC Morphology NORMAL Anaerobic Culture 08/23/2009 [facility] Anaerobic Culture [id number] 32 Bottle Bottle Ua - Micro (a) 08/23/2009 [facility] Appearance clear (607)- - Color yellow Glucose neg Bilirubin neg Ketones neg SP Grav 1.015 Blood small # PH 7.0 Protein neg Urobil 0.2eu/dl Nitrite neg Leukocytes (a/[facility]) small # Hyaline - /Lpf Granular - /Lpf WBC (Fma,[facility]) >100 # RBC 3-5 # Mucus - /Lpf Epith few /Lpf # Bacteria 3+ /Hpf # Amorphous - /Lpf Crystals, Fluid (Fma/CMC/CTX) - Urinalysis W/Microscopic 08/23/2009 [facility] Ua Color ORANGE Yellow Appearance-Urine CLEAR Clear Specific [place]-Ur 1.010 1.010-1.030 Esterase-Urine 2+ Abnormal Negative Nitrite POSITIVE Abnormal Negative [id number] NEGATIVE Negative Protein-Urine TRACE Abnormal Negative PH-Urine 6.0 5-9 Blood-Urine 1+ Abnormal Negative Ketones-Urine TRACE Abnormal Negative Bilirubin-Ur NEGATIVE Negative Glucose-Urine NEGATIVE Negative WBC-Urine TNTC Abnormal 0-5 RBC-Urine 0-2 0-2 Epith Cells-Ur MANY None Bacteria-Urine TRACE None Amorphous Sed-U TRACE None Blood Culture 08/23/2009 [facility] Aerobic Culture [id number] 33 Bottle Urine Culture & 08/23/2009 [facility] Urine Culture NG 34 Sensitivi Sensitivi Complete Blood 03/28/2009 Hays Ondina(a) WBC 4.6 3.6-9.6 Count x10^3/uL Gran# 3.3 x10^3/uL 1.5-7.2 Gran% 71.8 % 42.2-75.2 HCT 39 % 36-50 HGB 13.3 g/dL 12.1-17.2 Lymph# 1.2 x10^3/uL 0.7-4.9 Lymph% 25.2 % 20.5-51.1 MCH 31.4 pg 27.6-33.3 MCV 92.5 fL 82.2-97.4 MCHC 33.9 g/dL 33.0-35.5 Mo# 0.1 x10^3/uL 0.1-0.9 Mo% 3.0 % 1.7-9.3 MPV 7.8 fL 7.4-10.4 PLT 317 x10^3/uL 150-400 RBC 4.25 x10^6/uL 3.90-5.70 RDW 13.1 % 11.6-13.7 Comprehensive Metabolic 03/28/2009 Hays Ondina(a) Albumin 4.5 g/dL 3.8-5.5 Prof Alk. Phos. 50 U/L 30-110 Alt (SGPT) 8 U/L 7-35 Ast (Sgot) 18 U/L 5-34 BUN 11 mg/dL 6-26 Calcium 9.8 mg/dL 8.6-10.2 Chloride 106 mEq/L 94-112 Creatinine 0.8 mg/dL 0.6-1.4 Carbon Dioxide 26 mEq/L 21-32 Glucose 106 mg/dL High 70-105 Sodium 140 mEq/L 134-149 Total Bilirubin 0.3 mg/dL 0.2-1.3 Total Protein 7.2 g/dL 6.3-8.1 Potassium 4.5 mEq/L 3.6-5.5 Globulin 2.7 g/dL 2.0-4.8 A/G Ratio 1.6 Calc 0.6-2.2 BUN/Creat Ratio 13.7 Calc 8.0-36.0 Vitamin D 25 03/28/2009 [facility] Vitamin D, 14.0 ng/mL Low 32.0-100.[address] [facility] 25-Hydroxy [place] [id number] [phone] Laboratory 03/28/2009 [facility] Vitamin D,1,25 36.1 pg/mL 10.0-75.[address] [facility] Dihydro [place], [place] [id number] [phone] Ua - Micro 03/28/2009 [facility] Appearance cloudy (a) (607)- - Color yellow Glucose neg Bilirubin neg Ketones neg SP Grav 1.015 Blood trace # PH 7.0 Protein neg Urobil 0.2 Nitrite positive # Leukocytes (Fma/CMC/[facility]) trace # Hyaline - /Lpf Granular - /Lpf WBC (Fma,[facility]) 8-10 # RBC 3-6 # Mucus small amt /Lpf # Epith occass /Lpf # Bacteria 3+ /Hpf # Amorphous - /Lpf Crystals, Fluid (Fma/CMC/CTX) - Z#Comments - Laboratory test 03/28/2009 Hays Ondina(a) TSH 3.66 mIU/L 0.50-6.00 finding Lipid Profile 03/28/2009 Hays Ondina(a) Cholesterol 237 mg/dL High 120-200 HDL 67 mg/dL 30-85 Triglycerides 128 mg/dL 30-200 HDL Risk Factor 3.5 CALC Low 4.2-7.0 LDL (Calculated) 145 CALC High 0-129 VLDL (Calculated) 26 mg/dL 0-50 Laboratory test 03/01/2008 Hays Flora([facility]) TSH 3.30 mIU/L 0.50-6.00 36 finding Complete Blood Count 03/01/2008 Saúl Rosenberg([facility]) WBC 7.4 x10^3/uL 3.6 -9.6 Gran# 5.3 x10^3/uL 1.5-7.2 Gran% 72.1 % 42.2-75.2 HCT 43 % 36-50 HGB 14.7 g/dL 12.1-17.2 Lymph# 1.8 x10^3/uL 0.7-4.9 Lymph% 23.9 % 20.5-51.1 MCH 31.1 pg 27.6-33.3 MCV 91.6 fL 82.2-97.4 MCHC 34.0 g/dL 33.0-35.5 Mo# 0.3 x10^3/uL 0.1-0.9 Mo% 4.0 % 1.7-9.3 MPV 8.1 fL 7.4-10.4 PLT 406 x10^3/uL High 150-400 RBC 4.71 x10^6/uL 3.90-5.70 RDW 12.2 % 11.6-13.7 Comprehensive Metabolic 03/01/2008 Hays Flora([facility]) Albumin 4.4 g/dL 3.8-5.5 Prof Alk. Phos. 61 U/L 30-110 Alt (SGPT) 8 U/L 7-35 Ast (Sgot) 19 U/L 5-34 BUN 13 mg/dL 6-26 Calcium 9.9 mg/dL 8.6-10.2 Chloride 103 mEq/L 94-112 Creatinine 0.9 mg/dL 0.6-1.4 Carbon Dioxide 27 mEq/L 21-32 Glucose 95 mg/dL 70-105 Sodium 141 mEq/L 134-149 Total Bilirubin 0.4 mg/dL 0.2-1.3 Total Protein 7.3 g/dL 6.3-8.1 Potassium 4.5 mEq/L 3.6-5.5 Globulin 2.9 g/dL 2.0-4.8 A/G Ratio 1.5 Calc 0.6-2.2 BUN/Creat Ratio 13.9 Calc 8.0-36.0 Laboratory 03/01/2008 [facility] Thin Prep SEE 37 test finding [address] W/HPV(Lsil/WINSTON/Asc) NOTE [place], [place] [id number] [phone] Lipid Profile 03/01/2008 Hays Ondina(fma) Cholesterol 229 High 120 mg/dL -20 0 HDL 59 mg/dL 30-85 Triglycerides 89 mg/dL 30-200 HDL Risk Factor 3.9 CALC Low 4.2-7.0 LDL (Calculated) 152 CALC High 0-129 VLDL (Calculated) 18 mg/dL 0-50 Comp Metabolic Panel 01/05/2007 [facility] One Over Creatinine 1.11 Anion Gap 6.0 mmol/L 2-11 38 Albumin/Globulin Ratio 1.4 1-3 Albumin 4.0 GM/DL 3.6-5.4 Alkaline Phosphatase 61 U/L 30-110 Alt (SGPT) 11 U/L Low 14-54 Ast (Sgot) 18 U/L 12-42 BUN 12 mg/dL 6-24 Calcium 9.2 mg/dL 8.7-10.2 Chloride 104 mmol/L 101-111 Co2 (Carbon Dioxide) 27.0 mmol/L 22-32 Globulin 2.9 GM/DL 2-4 Glucose 91 mg/dL 70-105 Potassium 4.3 mmol/L 3.5-5.0 Sodium 137 mmol/L 135-145 Bilirubin Total 0.5 mg/dL 0.4-1.5 Total Protein 6.9 GM/DL 6.2-8.1 BUN/Creatinine Ratio 13.3 8-20 Creatinine 0.9 mg/dL 0.5-1.4 Lipid Profile 01/05/2007 [facility] Cholesterol/HDL Ratio 3.53 AVERAGE 1-4.44 (Trig/Chol/HDL) Cholesterol 226 mg/dL High Less Than 200 39 Triglyceride 91 mg/dL 40-200 High Density Lipoprotein 64 mg/dL High 40-60 40 Low Density Lipoprotein 144 mg/dL High Less Than 100 41 Laboratory test finding 01/05/2007 [facility] TSH 3.73 MIU/ML 0.34-5.60 CBC With Electronic Diff 01/05/2007 [facility] White Blood Count 6.8 CUMM 4.8- 10.8 Abs Basophils 0 0-0.2 Abs Eosinophils 0.1 0-0.6 Absolute Neutrophil Count 4.7 1.5-7.7 Abs Lymphs 1.5 1.0-4.8 Abs Mononuclear 0.5 0-0.8 Basophil % 0.3 % 0-2 Hematocrit 42 % 35-47 Hemoglobin 14.0 g/dL 12.0-16.0 Eosinophil % 1.4 % 0-6 Gran % 68.5 % 38-83 Lymph % 22.4 % 20-45 Mean Corpuscular HGB Cone 34 g/dL 32-36 Mean Corpuscular Hemoglob 31 pg 27-31 Mean Corpuscular Volume 93 um3 79-97 Mean Platelet Volume 8.0 um3 7.4-10.4 Mononuclear % 7.4 % 1-9 Platelet Count 341 CUMM 150-450 Red Cell Count 4.49 CUMM 4.2-5.4 Redcell Distribution WDTH 13 % 10.5-15 Laboratory test 12/30/2006 [facility] Thin Prep SEE NOTE [address] [facility] W/HPV(Lsil/WINSTON/Asc) [place] [address] [phone] Ua - Non Micro 12/30/2006 [facility] Appearance CLEAR (Fma) (607)- - Color LT YELLOW Glucose NEG Bilirubin NEG Ketones NEG SP Grav <1.005 Blood NEG PH 5.0 Protein NEG Urobil 0.2 Nitrite NEG Leukocytes (Fma/CMC/[facility]) NEG CBC With Electronic Diff 07/15/2006 [facility] White Blood Count 5.9 CUMM 4.8- 10.8 43 Abs Basophils 0 0-0.2 Abs Eosinophils 0.1 0-0.6 Absolute Neutrophil Count 3.6 1.5-7.7 Abs Lymphs 1.7 1.0-4.8 Abs Mononuclear 0.5 0-0.8 Basophil % 0.2 % 0-2 Hematocrit 40 % 35-47 Hemoglobin 13.7 g/dL 12.0-16.0 Eosinophil % 0.9 % 0-6 Gran % 61.3 % 38-83 Lymph % 29.1 % 20-45 Mean Corpuscular HGB Cone 35 g/dL 32-36 Mean Corpuscular Hemoglob 30 pg 27-31 Mean Corpuscular Volume 87 um3 79-97 Mean Platelet Volume 8.2 um3 7.4-10.4 Mononuclear % 8.5 % 1-9 Platelet Count 347 CUMM 150-450 Red Cell Count 4.54 CUMM 4.2-5.4 Redcell Distribution WDTH 14 % 10.5-15 Laboratory test finding 07/15/2006 [facility] [place] BUN 11 mg/dL 6-24 Creatinine 07/15/2006 [facility] [place] One Over Creatinine 1.11 Creatinine 0.9 mg/dL 0.5-1.4 Laboratory test finding 07/15/2006 [facility] [place] Glucose 90 mg/dL 70-105 Electrolytes 07/15/2006 [facility] [place] Anion Gap 5.0 mmol/L 2-11 44 Chloride 105 mmol/L 101-111 Co2 (Carbon Dioxide) 28.0 mmol/L 22-32 Potassium 4.3 mmol/L 3.5-5.0 Sodium 138 mmol/L 135-145 1 consistent w/ previous results 2 consistent w/ previous results 3 RESULTS VERIFIED BY REPEAT ANALYSIS 4 RESULTS VERIFIED BY REPEAT ANALYSIS 5 consistent w/ previous results 6 SRC:<Blank> 1URINE VACUTAI NER 7 Source of Specimen: <Blank> 1URINE VACUTAI 8 Escherichia coli Source of Specimen: <Blank> 1URINE VACUTAI 25,000-50,000 colony forming units per mL 9 Source of Specimen: <Blank> 1URINE VACUTAI S=Susceptible; I=Intermediate; R=Resistant P=Positive; N=Negative MICS are expressed in micrograms per mL Antibiotic RSLT#1 RSLT#2 RSLT#3 RSLT#4 Amoxicillin/Clavulanic Acid S Ampicillin I Cefepime S Ceftriaxone S Cefuroxime I Cephalothin R Ciprofloxacin S Ertapenem S Gentamicin S Imipenem S Levofloxacin S Nitrofurantoin S Piperacillin S Tetracycline S Tobramycin S Trimethoprim/Sulfa S 10 SEE RESULT BELOW Name: KIM ORLANDO : [address]: Jason Diallo MD Acct: [id number] Unit: [id number] AGE: 64 Location: ENDO Re12/08/14 SEX: F Status: REG REF SPEC: [id number] LONG: 12/08/14-[address] [facility] [address]: Jsaon Diallo MD REQ: [id number] RECD: 12/08/14 STATUS: CHRISTINA LEZAMA DR: Rajvi Grigsby MD _ ORDERED: LEVEL IV FINAL DIAGNOSIS Colon, cecum, biopsy: -- Tubular adenoma. -- No high grade dysplasia or malignancy. CLINICAL HISTORY History of colon polyps for screening colonoscopy. POST-OPERATIVE DIAGNOSIS Screening colonoscopy into terminal ileum, prep good. Cecal polyp removed. Sigmoid diverticulosis. Conclusion: Polyp removed. GROSS DESCRIPTION The specimen is received in formalin labeled, Cecal Polyp, and consists of two decker-pink irregular to polypoid soft tissue fragments measuring 0.3 x 0.3 x 0.2 cm and 1.1 x 0.3 x 0.3 cm. The larger fragment is inked, serially sectioned and the specimen is submitted entirely in one cassette. Signed (signature on file) Fernando Carranza MD [id number] END OF REPORT * ML=Testing performed at Main Lab DEPARTMENT OF PATHOLOGY, [address] [place] [address] Fernando Carranza M.D. Director [facility] # [id number] 11 Escherichia coli >100,000 col/ml URINE CULTURE organism 1 Escherichia coli >100,000 col/ml Ampicillin <=2 Susceptible Ampicillin/sulbactam <=2 Susceptible Cefazolin <=4 Susceptible Cefoxitin <=4 Susceptible Ciprofloxacin <=0.25 Susceptible Ertapenem <=0.5 Susceptible Gentamicin <=1 Susceptible Imipenem <=0.25 Susceptible Levofloxacin <=0.12 Susceptible Nitrofurantoin <=16 Susceptible Piperacillin/tazobactam <=4 Susceptible Trimethoprim/Sulfa <=20 Susceptible 12 Escherichia coli >100,000 col/ml URINE CULTURE organism 1 Escherichia coli >100,000 col/ml Amikacin <=2 Susceptible Amoxicillin/CA 4 Susceptible Ampicillin >=32 Resistant Aztreonam <=1 Susceptible Cefazolin <=4 Susceptible Cefoxitin <=4 Susceptible Ciprofloxacin >=4 Resistant Ertapenem <=0.5 Susceptible Gentamicin <=1 Susceptible Imipenem <=0.25 Susceptible Levofloxacin >=8 Resistant Nitrofurantoin <=16 Susceptible Piperacillin/tazobactam <=4 Susceptible Trimethoprim/Sulfa <=20 Susceptible 13 RESULTS VERIFIED BY REPEAT ANALYSIS 14 Escherichia coli >100,000 col/ml URINE CULTURE organism 1 Escherichia coli >100,000 col/ml Ertapenem <=0.5 Susceptible Amikacin <=2 Susceptible Amoxicillin/CA 16 Intermediate Ampicillin >=32 Resistant Aztreonam <=1 Susceptible Cefazolin <=4 Susceptible Cefoxitin <=4 Susceptible Ciprofloxacin >=4 Resistant Gentamicin <=1 Susceptible Imipenem <=0.25 Susceptible Levofloxacin >=8 Resistant Nitrofurantoin <=16 Susceptible Piperacillin/tazobactam 32 Intermediate Trimethoprim/Sulfa <=20 Susceptible 15 [facility] [employer] DEPARTMENT OF PATHOLOGY or Extension 0451 SEISMIC SURVEY ASSISTANT CYTOLOGY REPORT PATIENT: KIM ORLANDO : 1950 AGE: 59 Y SEX: F ACCT: [id number] PROCEDURE DATE: 04/10/2010 DATE RECEIVED: 04/11/2010 REQUESTING PHYSICIAN: LENORE BOJORQUEZ MD LOCATION: [facility] [place] Case No. [id number] PATIENT DATA: [id number] SPECIMEN SUBMITTED: * * (HPVII) THIN PREP W/HPV (LSIL/ASC/WINSTON) * * ENDOCERVICAL RELEVANT HISTORY: Menopause: Y Contraceptive: NA : 3 Prev.normal: 12-21 Para: 3 Comment: HYST 23 YRS AGO SPECIMEN ADEQUACY SATISFACTORY FOR EVALUATION. THE PRESENCE OF TRANSFORMATION ZONE COMPONENT CANNOT BE DETERMINED DUE TO ATROPHIC CHANGES. GENERAL CATEGORIZATION NEGATIVE FOR INTRAEPITHELIAL LESIONS OR MALIGNANCY ADDITIONAL COPIES SENT TO: Screened/Rescreened Electronically Signed Sign Out Date/Time: by: by: AGUS MOSER, 04/12/2010 10:07 CT(ASCP) Thin Prep Pap tests are examined with an FDA-approved location-guidance system (31937). Performed @ [email or web address] [address] [place], [place] [id number] 16 Escherichia coli >100,000 col/ml URINE CULTURE organism 1 Escherichia coli >100,000 col/ml Meropenem <=0.25 mcg/mL Susceptible Ertapenem <=0.5 mcg/mL Susceptible Amikacin <=2 mcg/mL Susceptible Amoxicillin/CA <=2 mcg/mL Susceptible Ampicillin <=2 mcg/mL Susceptible Aztreonam <=1 mcg/mL Susceptible Cefazolin <=4 mcg/mL Susceptible Ciprofloxacin <=0.25 mcg/mL Susceptible Gentamicin <=1 mcg/mL Susceptible Levofloxacin <=0.12 mcg/mL Susceptible Nitrofurantoin <=16 mcg/mL Susceptible Tetracycline <=1 mcg/mL Susceptible Trimethoprim/Sulfa <=20 mcg/mL Susceptible 17 ---- RUN DATE: 10/16/09 [facility] NMI LIVE PAGE 1 RUN TIME: 1349 Specimen Inquiry RUN USER: INTERFACE -- Name: KIM ORLANDO Accmiranda#: [id number] Status: REG REF Re10/12/09 Age/Sex: 59/F Unit#: [id number] Location: [facility]. : [birth year] -- Specimen: [id number] SOUT Spec Date: 10/12/[address]: Jason wyatt MD Spec Type: SURGICAL P Received: 10/15/09-7008 Copies to: Lenore guzman MD SPECIMEN BIOPSY CECAL POLYP HISTORY POST-OP DIAGNOSIS: Small polyp removed CLINICAL INFORMATION: Diarrhea. Screening colonoscopy GROSS DESCRIPTION The specimen is received in formalin labelled Kim Orlando, Biopsy Cecal Polyp, and consists of a decker, soft tissue fragment measuring 0.3 x 0.3 x 0.2 cm. Submitted entirely, one cassette. DIAGNOSIS Colon, cecal polyp, biopsy: A. Tubular adenoma. B. No high grade dysplasia or malignancy. Signed Electronically by: FERNANDO CARRANZA MD 10/16/09 1349 -- -- DEPARTMENT OF PATHOLOGY, [address] [place] [address] [facility] Permit #[id number] Fernando Carranza M.D. Director Machelle Kirkpatrick M.D. Carpet Finishing Supervisor Dir jai -- 18 SOFT NONFORMED VEGITABLE MATTER 19 TEST LIMITATIONS: The performance of specimens from pediatric patients has not been evaluated. A positive test confirms the presence of toxins A and/or B only. A physician must use the test results in conjunction with other diagnostic procedures and the patient's clinical condition to establish a diagnosis of C.difficile-associated disease. Isolates of C. sordellii may react with this test due to immunological identitiy of the C. sordellii toxins. Two distinct groups have been identified that can harbor C. difficile asymptomatically at very high rates. Colonization rates of up to 50% and higher have been reported in infants and rates of up to 32% in cystic fibrosis patients. NEGATIVE BY IMMUNOASSAY 20 FINAL IDENTIFICATION ESCHERICHIA COLI SEROGROUP O103 WAS ISOLATED MAJOR TESTS PERFORMED Culture and biochemical analysis: ESCHERICHIA COLI SEROGROUP O103 WAS ISOLATED Shiga toxin real-time PCR: POSITIVE FOR SHIGA TOXIN TYPE 1 DNA Test Performed by [facility] [address], [place] [address] 21 COMMENTS: N 22 Anion gap measurement may be of limited value in the presence of any alkalosis, especially in a combined acid base disorder. . 23 Note change in reference range as of 11/04/07. The change was based on recommendations from the [place] [employer]. 24 Please note change in reference range effective 07 . 25 A metabolite of Naproxen, O-desmethylnaproxen, has been shown to interfere with the Jendrassik-Ginger Blue method for measuring total bilirubin. Samples from patients who have taken Naproxen have shown spurious elevation in total bilirubin levels. 26 Because ethnic data is not always readily available, this report includes an eGFR for both -Americans and non- Americans. The National Kidney Disease Education Program (NKDEP) does not endorse the use of the MDRD equation for patients that are not between the ages of 18 and 70, are , have extremes of body size, muscle mass, or nutritional status, or are non- or non-. According to the National Kidney Foundation, irrespective of diagnosis, the stage of the disease is based on the level of kidney function: Stage Description GFR(mL/min/1.73 m(2)) 1 Kidney damage with normal or decreased GFR 90 2 Kidney damage with mild decrease in GFR 60-89 3 Moderate decrease in GFR 30-59 4 Severe decrease in GFR 15-29 5 Kidney failure <15 (or dialysis) 27 Anion gap measurement may be of limited value in the presence of any alkalosis, especially in a combined acid base disorder. . 28 Note change in reference range as of 11/04/07. The change was based on recommendations from the [place] [employer]. 29 Please note change in reference range effective 07 . 30 A metabolite of Naproxen, O-desmethylnaproxen, has been shown to interfere with the Jendrassik-Ginger Blue method for measuring total bilirubin. Samples from patients who have taken Naproxen have shown spurious elevation in total bilirubin levels. 31 Because ethnic data is not always readily available, this report includes an eGFR for both -Americans and non- Americans. The National Kidney Disease Education Program (NKDEP) does not endorse the use of the MDRD equation for patients that are not between the ages of 18 and 70, are , have extremes of body size, muscle mass, or nutritional status, or are non- or non-. According to the National Kidney Foundation, irrespective of diagnosis, the stage of the disease is based on the level of kidney function: Stage Description GFR(mL/min/1.73 m(2)) 1 Kidney damage with normal or decreased GFR 90 2 Kidney damage with mild decrease in GFR 60-89 3 Moderate decrease in GFR 30-59 4 Severe decrease in GFR 15-29 5 Kidney failure <15 (or dialysis) 32 NO GROWTH AFTER 5 DAYS 33 NO GROWTH AFTER 5 DAYS 34 FINAL: NO GROWTH DAY 2 (<1,000 CFU/mL) 35 Recent studies consider the lower limit of 32.0 ng/mL to be a threshold for optimal health. Ken BW. J Nutr. 2005 Apr;135(2):317-22. 36 FASTING 37 [employer] DEPARTMENT OF PATHOLOGY or Extension 8244 SEISMIC SURVEY ASSISTANT CYTOLOGY REPORT PATIENT: KIM ORLANDO : 1950 AGE: 57 Y SEX: F ACCT: [id number] PROCEDURE DATE: 03/01/2008 DATE RECEIVED: 03/02/2008 REQUESTING PHYSICIAN: LENORE BOJORQUEZ MD LOCATION: [facility] [place] Case No. [id number] PATIENT DATA: [id number] SPECIMEN SUBMITTED: * * (HPVII) THIN PREP W/HPV (LSIL/ASC/WINSTON) * * ENDOCERVICAL RELEVANT HISTORY: Menopause: Y : 3 Para: 3 Contraceptive: NONE Prev.normal: 2006 Comment: HYST SPECIMEN ADEQUACY SATISFACTORY FOR EVALUATION, ENDOCERVICAL TRANSFORMATION ZONE COMPONENT PRESENT GENERAL CATEGORIZATION NEGATIVE FOR INTRAEPITHELIAL LESIONS OR MALIGNANCY INTERPRETATION/ RESULT PREDOMINANCE OF BACTERIA CONSISTENT WITH A SHIFT IN VAGINAL ONDINA. ADDITIONAL COPIES SENT TO: Screened/Rescreened by: Electronically Signed by: CHAYA SUERO(ASCP) Signed Date and Time: 03/03/2008 16:49 Thin Prep Pap tests are examined with an FDA-approved location-guidance system (26820). Performed @ [email or web address] [address] [place] [address] "" 38 Anion gap measurement may be of limited value in the presence of any alkalosis, especially in a combined acid base disorder. . 39 Classification: Borderline High . 40 Classification: High . 41 CALCULATED LDL APPROXIMATES THE VALUE OF A DIRECT LDL MEASUREMENT. Classification: Borderline High . 42 [employer] DEPARTMENT OF PATHOLOGY or Extension 4918 SEISMIC SURVEY ASSISTANT CYTOLOGY REPORT PATIENT: KIM ORLANDO : 1950 AGE: 56 Y SEX: F ACCT: [id number] PROCEDURE DATE: 12/30/2006 DATE RECEIVED: 12/31/2006 REQUESTING PHYSICIAN: LENORE BOJORQUEZ MD LOCATION: [facility] [place] Case No. [id number] PATIENT DATA: [facility] HYST 1986 SPECIMEN SUBMITTED: * * (HPVII) THIN PREP W/HPV (LSIL/ASC/WNISTON) * * ENDOCERVICAL RELEVANT HISTORY: : 3 Para: 3 Previous smear date: ??/??/2004 Prev.normal: 2004 SPECIMEN ADEQUACY SATISFACTORY FOR EVALUATION GENERAL CATEGORIZATION NEGATIVE FOR INTRAEPITHELIAL LESIONS OR MALIGNANCY INTERPRETATION/ RESULT PREDOMINANCE OF BACTERIA CONSISTENT WITH A SHIFT IN VAGINAL ONDINA. ADDITIONAL COPIES SENT TO: Screened/Rescreened by: Electronically Signed by: CHAYA COLE(ASCP) Signed Date 01/07/2007 15:15 Thin Prep Pap tests are examined with an FDA-approved location-guidance system (78767). Performed @ [employer] [address] [place] [address] 43 SDS 07/30/06 44 Anion gap measurement may be of limited value in the presence of any alkalosis, especially in a combined acid base disorder. . Procedures Date Code Description Status 02/01/2018 35005 Electrocardiogram Complete Completed 01/13/2018 [id number] Mammogram Completed 10/15/2016 [id number] Mammogram Completed 08/22/2016 84232 Electrocardiogram Complete Completed 03/16/2016 [id number] Bone Mineral Density Test Completed 07/11/2015 [id number] Mammogram Completed 12/08/2014 [id number] Colonoscopy Completed 07/03/2014 [id number] Mammogram Completed 06/02/2013 [id number] Mammogram Completed 05/28/2012 83721 Dxa Bone Density Vertebarl FX Assessment Completed 05/28/2012 33069 Dxa Bone Density Study One Or More Sites Axial Completed Skeleton 05/21/2011 [id number] Mammogram Completed 10/12/2009 [id number] Colonoscopy Completed 03/24/2008 [id number] Mammogram Completed 01/05/2007 [id number] Mammogram Completed 12/31/2005 [id number] Mammogram Completed Encounters Type Date Location Provider Dx Diagnosis Office Visit 02/01/2018 Main Office Nirali Franks, I10 Essential ( primary) 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 R42 Dizziness and giddiness Office Visit 01/04/2018 [facility] Deonna I10 Essential 3:00p Office [place], (primary) Afnp-C hypertension Office Visit 11/30/2017 [facility] Deonna I10 Essential 2:45p Office Hiljoanneorf, (primary) Afnp-C hypertension Office Visit 10/05/2017 Main Office Piedad Barba, I10 Essential 3:00p QUANTITATIVE 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 shoulder Office Visit 07/06/2015 Yoon Grover R31.2 Other microscopic 1:45p Office Umair, QUANTITATIVE RESEARCHER hematuria N39.0 Urinary tract infection, site not specified Office Visit 06/20/2015 9:20a [facility] Trisha Babcock, Z00.00 Encntr for M.D. general adult medical exam w/o abnormal findings I10 Essential (primary) hypertension G47.00 Insomnia, unspecified R31.2 Other microscopic hematuria Z12.31 Encntr screen mammogram for malignant neoplasm of breast Office Visit 06/16/2014 8:00a [facility] Office Rajiv Grigsby V70.0 Examination M.D. General Medical Routine AT Health Care Facility 401.1 Hypertension Benign 719.45 Pain Joint Pelvic Region & Thigh V76.12 Screening Mammogram Malig Radames Other Office Visit 05/22/2014 3:00p Main Office Piedad Barba, 729.5 Pain In Limb QUANTITATIVE RESEARCHER Office Visit 01/24/2014 11:15a [facility] Deonna 599.0 UTI Urinary Tract [place], Infection Site Not Afnp-C Spec Office Visit 12/02/2013 9:10a [facility] Rajiv Grigsby M.D. 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84 Urethra Other Spec Disorders 780.52 Insomnia Unspecified V17.49 Family HX Of Other Cardiovascular Diseases Office Visit 11/01/2010 1:10p Main Office Jesus Marcum, 599.0 UTI Urinary Tract M.D. Infection Site Not Spec Office Visit 04/10/2010 10:00a Main Office Lenore oliva 783.1 Weight Gain Esme Arredondo Abnormal 272.4 Hyperlipidemia Other Unspec V70.0 Examination General Medical Routine AT Health Care Facility V72.31 Routine Vp Site Examination Office Visit 01/08/2010 10:30a Main Office Nat Santoyo, 599.0 UTI Urinary Tract M.D. Infection Site Not Spec Office Visit 08/23/2009 9:40a Main Office Dick Magaña, 599.0 UTI Urinary Tract M.D. Infection Site Not Spec Office Visit 07/06/2009 10:10a Main Office Aneta Snyder, 461.9 Sinusitis Acute M.D. Unspec Office Visit 03/28/2009 9:00a Main Office Lenore oliva 791.7 Cells & Casts In Esme Arredondo Urine Other V06.5 Tetanus Diphtheria (DT) v06.5 Tetanus Diphtheria (DT) V70.0 Examination General Medical Routine AT Health Care Facility 272.4 Hyperlipidemia Other Unspec 599.0 UTI Urinary Tract Infection Site Not Spec Office Visit 03/01/2008 9:00a Main Office Lenore oliva V70.0 Examination General Esme Arredondo Medical Routine AT Health Care Facility v70.0 Examination General Medical Routine AT Health Care Facility 272.4 Hyperlipidemia Other Unspec 388.70 Otalgia & Earache Unspec V72.31 Routine Vp Site Examination 692.9 Eczema NOS, Contact Dermatitis NOS 780.52 Insomnia Unspecified Office Visit 08/13/2007 3:45p Main Office Piedad Barba, 989.5 Toxic Effect Of QUANTITATIVE RESEARCHER [place] Office Visit 06/10/2007 2:10p [facility] Marcelo Edwards, 461.9 Sinusitis Acute M.D. Unspec 465.9 URI Upper Respiratory Infections Acute Unspec Sites Office Visit 12/30/2006 Main Office Lenore oliva V04.81 Need For Prophylactic 2:00p Esme Arredondo Vaccination & Inoculation/Influenza V70.0 Examination General Medical Routine AT Health Care [facility] Office Visit 06/19/2006 1:15p Main Office YOANA Ramirez 461.9 Sinusitis Acute Unspec Office Visit 04/21/2006 1:15p Main Office Sailaja Odonnell, 461.9 Sinusitis Acute Afnp-C Unspec Office Visit 12/15/2005 2:15p Main Office Deonna Hayes, 461.9 Sinusitis Acute Afnp-C Unspec Office Visit 10/20/2005 2:20p Main Office Lenore oliva V70.0 Examination General Esme Arredondo Medical Routine AT Health Care Facility 780.52 Insomnia Unspecified Plan of Treatment Future Appointment(s):02/23/2019 9:00 am - Trisha Babcock M.D. at [facility] Qbbiim8409/14/2018 - Trisha Babcock M.D.Z01.818 Encounter for other preprocedural examinationComments:Cleared for surgery. Will fax note to ordering physician. Cleared for surgery. Will fax note to ordering physician. HOLD NSAIDS and supplements 7 days prior to jorbwfxO83.11 Unilateral primary osteoarthritis, right kneeI10 Essential (primary) hypertensionComments:The patient will continue to monitor blood pressure and let me know the blood pressure results if there are readings persistently above 140/90. Goal blood pressure is less than 130/80. Recommend low salt/cardiac diet such as the Mediterranean diet and routine exercise at least 30 minutes a day.R73.01 Impaired fasting glucoseComments:Counseled on heart healthy diet and exercise including limiting carbs and portion control and at least 30 minutes of physical activity daily. Consider Mediterranean diet as a guide for healthy eating. A1c> 6.5 is diagnostic of diabetesAllComments:Medication Management Patient Understands medications she's taking? Yes No Are there Barriers to Adherence? Yes No Has the patient been asked about herbal supplements and therapies, and OTC meds? Yes No
[2018-10-11] MEDS ORDERED: Lactated Ringers 1000 ML Bag* 1,000 ML IV SCH (06:00)
[2018-10-11] MEDS ORDERED: Buffered Lidocaine 1% SYRIN* 1 ML/SYRINGE INTRADERM ONE (06:09)
[2018-10-11] MEDS ORDERED: ceFAZolin 2 GM in NS PREMIX(*) 2 GM/100 ML BAG IVPB ONE (06:09)
[2018-10-11] MEDS ORDERED: Lidocaine 1% w EPI 1:200,000* 30 ML VIAL ONE (07:05)
[2018-10-11] MEDS ORDERED: Bupivacaine 0.5%* 50 ML VIAL ONE (07:05)
[2018-10-11] MEDS ORDERED: Midazolam* 1 MG/ML 2 ML VIAL (2 MG) ONE ×3 (07:11→09:21)
[2018-10-11] MEDS ORDERED: Dexmedetomidine* 200 MCG/2 ML 2 ML VIAL ONE (07:11)
[2018-10-11] MEDS ORDERED: Lidocaine 2% PF * 5 ML VIAL ONE (07:11)
[2018-10-11] MEDS ORDERED: Bupivacaine 0.5% SDV PF* 30ML VIAL ONE (07:11)
[2018-10-11] MEDS ORDERED: ROPIVACAINE 5 MG/ML 30 ML BTL (0.5%) ONE (07:11)
[2018-10-11] MEDS ORDERED: Propofol* 10 MG/ML 20 ML BTL ONE ×3 (07:49→09:25)
[2018-10-11] MEDS ORDERED: KETAMINE HCL* 50 MG/ML 10 ML VIAL ONE (07:50)
[2018-10-11] MEDS ORDERED: HYDROmorphone INJ1* 1 MG/ML SYRINGE IV PRN (08:18)
[2018-10-11] MEDS ORDERED: Acetaminophen TAB* 325 MG PO PRN (08:18)
[2018-10-11] MEDS ORDERED: Ketorolac INJ* 30 MG/ML 1 ML VIAL IV PRN (08:18)
[2018-10-11] MEDS ORDERED: Ondansetron ODT TAB* 4 MG PO PRN (08:18)
[2018-10-11] MEDS ORDERED: Naloxone* 0.4 MG/ML 1 ML VIAL IV PRN (08:18)
[2018-10-11] MEDS ORDERED: Dexamethasone IV* 4 MG/ML 1 ML (4 MG) ONE (08:24)
[2018-10-11] MEDS ORDERED: Bupivacaine 0.5% W/EPI SDV* 30 ML VIAL ONE (08:44)
[2018-10-11] MEDS ORDERED: EPHEDrine (Pressors)* 50 MG/ML VIAL ONE (08:55)
[2018-10-11] MEDS ORDERED: Magnesium Hydroxide LIQ* 30 ML UDC PO PRN (10:34)
[2018-10-11] MEDS ORDERED: oxyCODONE TAB* 5 MG TAB PO PRN (10:34)
[2018-10-11] MEDS ORDERED: diPHENhydraMINE IV* 50 MG/ML 1 ml VIAL (BENADRYL) IV PRN (10:34)
[2018-10-11] MEDS ORDERED: diPHENhydraMINE PO* 25 MG PO PRN (10:34)
[2018-10-11] MEDS ORDERED: Cyclobenzaprine TAB* 10 MG PO PRN (10:34)
[2018-10-11] MEDS ORDERED: Ondansetron TAB* 4 MG PO PRN (10:34)
[2018-10-11] MEDS ORDERED: Ondansetron INJ* 2 MG/ML VIAL IV PRN (10:34)
[2018-10-11] MEDS ORDERED: Morphine 4 MG/ML VIAL (1 ml) 4 MG/ML VIAL IV PRN (10:34)
[2018-10-11] MEDS ORDERED: Zolpidem TAB* 5 MG PO PRN (10:39)
[2018-10-11] MEDS ORDERED: Acetaminophen TAB* 325 MG ONE (11:12)
[2018-10-11] MEDS ORDERED: Ketorolac INJ* 30 MG/ML 1 ML VIAL ONE (11:13)
--- NOTE | 2018-10-11 11:34 | OP ---
DATE OF OPERATION: 10/11/18 - ROOM #343 DATE OF : 52 ATTENDING SURGEON: Yaniv Dailey MD [place] DECORATOR: Harmony Foley RPA ANESTHESIA: Regional/spinal/sedation. PRE-OP DIAGNOSIS: Osteoarthritis, right knee. POST-OP DIAGNOSIS: Osteoarthritis, right knee. OPERATIVE PROCEDURE: Right total knee arthroplasty using NAVIO navigation. ESTIMATED BLOOD LOSS: About 50 cc. COMPLICATIONS: None. HARDWARE: [employer] femur #6 narrow, Tatyana II tibia size 5, 9 mm posterior stabilized polyethylene, 32 mm patellar button. SUMMARY: Mrs. Gomes is a 68-year-old female who has had a long history of troubles with her right knee. She had been treated conservatively for years with physical therapy, antiinflammatories, and various injections. All of these had worked well until recently. She reports having more troubles with pain and the last series of viscosupplementation had not worked for her. By x-ray, she had progressed where she was completely fass-wi-hiws in the lateral compartment as well as having significant spurs in 2 out of 3 compartments. I discussed with her that a total knee arthroplasty should work well to decrease her pain and improve her function. Risks of surgery such as infection, scar formation, stiffness, DVT, pulmonary embolism, hardware failure, and specifically peroneal nerve injury because of her valgus deformity were discussed. She had been declared medically optimized and wished to proceed. DESCRIPTION OF PROCEDURE: The patient had a femoral nerve block placed in the holding area and was brought back to the OR. Spinal anesthesia was introduced. Hogue catheter and tourniquet were both placed. Total tourniquet time would be 73 minutes. The right knee was prepped and then draped. Esmarch was used to exsanguinate the leg and the tourniquet was raised. A midline incision was made beginning about 4 fingerbreadths above the superior pole of the patella to allow for the NAVIO femoral outrigger. Incision was carried down to the medial side of the tibial tubercle, dividing the skin and subcutaneous tissues. Small bleeders encountered were ligated using electrocautery. Extensor mechanism was exposed and a sharp parapatellar arthrotomy was made. Gush of clear, yellowish joint fluid was encountered. Soft tissues were sharply elevated from the medial side of the tibia and fat pad were sharply excised. Patella measured 23 mm in thickness and a nice 9 mm cut was taken. Patella was then easily subluxated laterally. The knee was flexed up. Small pins for the NAVIO were placed and the outrigger pins were placed as well. Beginning 4 fingerbreadths below the tibial tubercle, small zuleika incision was made and tibial pin was placed. Guide was placed and second pin was then placed after nicking the skin as well. Similarly on the femur, the drill guide was pushed superiorly along the top of the arthrotomy incision and two pins were then placed. Outrigger was assembled so that the NAVIO could recognize the leg. Points were taken on the tibial and femoral pins as well as the outriggers and then the medial and lateral malleoli. Range of motion was then performed and all this was saved onto the NAVIO. Stress range of motion was then also performed. The NAVIO wand was then used to outline the distal femur, and once the femur had essentially been scanned into the NAVIO, attention was turned to the tibia. Similarly, proximal tibia was scanned into the NAVIO as well. Using the software, parts were selected and positioning adjusted. The computer system suggested a 5, but there were troubles with the sizing, so we upgraded to a 6 as there was much more of a flexion gap according to the templating that the computer suggested. With the 6 narrow, this seemed to fit nicely and rotation was then adjusted so that the flexion and extension gaps sat better. Similarly, tibia was adjusted until it also sat nicely and seemed to fit perfectly. Components seemed to fit well on the templating and decision was made to go with these cuts. Letty was then used to resect the distal femur and the drill holes were then made using a separate drill. Femoral cutting guide was then placed and anterior femoral cut was taken. The templating had set about 6 degrees of external rotation, this was necessary because of the deficient lateral femoral condyle. There was a small notch on the lateral side, but I thought this would be very acceptable. When the saw had been used to cut the proximal femur, the femoral pin had been hit and was lost for a period of time. I could not palpate it within the wound nor do we see it on the field so x- ray was called. Meanwhile, the work was continued on the knee. Posterior femoral cuts followed by the chamfer cuts were all taken. Disc was placed in the saw cut to confirm alignment of the cuts and these were within 0.1 degrees of the plan. Attention was turned to the tibia. Points were reconfirmed and the tibial drill holes were made. This allowed for the tibial guide to be impacted in, and using the alignment guide, our alignment was again perfect. Guide was pinned into place and proximal tibial cut was taken. She was then trialed with the spacer block and she could lock out nicely into a full extension and alignment was perfect. Similarly at 90 degrees, she sat perfectly and had just a tiny bit of medial and lateral wobble which corresponded well to templating. At this point, the x-ray came in, and then when we had pulled back on the NAVIO, pin was found on the floor. Femoral trial was placed and a notch cut was finished using first the drill and then the osteotomes. Similarly, tibial trial was placed and proximal tibia was drilled and then punched. Patella was sized to 32 and sat very nicely. Holes were drilled, and at this point, tourniquet was at 73 minutes and was let down. Knee was copiously pulse lavaged. Parts were brought onto the table and cement was being prepared. Tibia, followed by femur and patella were all cemented into place. Excess cement was removed and the cement was allowed to harden. Once the cement had hardened, knee was searched for excess cement and a few small pieces were found and these were removed. The knee was again copiously pulse lavaged. A 9 mm polyethylene was then snapped into place. She came out nicely into a full extension and easily flexed to about 135 degrees. She was stable throughout and patellar tracking was good. Knee was again copiously pulse lavaged and a parapatellar arthrotomy was repaired using interrupted #1 Vicryl sutures. Subcutaneous tissues were reapproximated with 2-0 Vicryl. Skin was closed using sergio. The tibial outrigger pin sites were repaired using 3-0 nylon sutures. Sterile dressing and a Cryo/Cuff were applied in the OR. The patient was then awakened, stable on transfer to the recovery room. [id number]/[facility] #: [id number] CÉSAR
[2018-10-11] MEDS: D5W 1/2 NS 1000 ML BAG* 1,000 ML IV SCH (12:36)
--- NOTE | 2018-10-11 13:34 | CONS ---
CC: Dr. Yaniv Dailey; Dr. Trisha Babcock * CONSULTATION REPORT: DATE OF CONSULT: 10/11/18 CONSULTING PROVIDER: Dr. Yaniv Dailey. MY ATTENDING WHILE IN THE HOSPITAL: Dr. Lucila Wagner. PRIMARY CARE PROVIDER: Dr. Trisha Babcock. REASON FOR CONSULTATION: Management of comorbid medical conditions. HISTORY OF PRESENT ILLNESS: Ms. Gomes is a 68-year-old female with past medical history for hypertension who today underwent an elective right total knee arthroplasty by Dr. Yaniv Dailey. The patient postoperatively is feeling very well. She has no sensation in her lower extremities, but has no pain. No chest pain, shortness of breath, dyspnea, nausea, vomiting, fevers, or chills. The patient preoperatively was feeling well, had excellent exercise capacity, excepting being limited by her knee. The patient had no difficulty being laid flat. No pain with urination. No abdominal pain or diarrhea. No nausea. No vomiting or other recent illnesses or changes to her medications. She most recently took her valsartan at 9 p.m. on the night before surgery. The patient has not had any sick contacts or any other complaints. PAST MEDICAL HISTORY: Hypertension, hypercholesterolemia, and insomnia. PAST SURGICAL HISTORY: Cholecystectomy, hysterectomy, ORIF of the right ankle, arthroscopy of knee, rehabilitation in 2009, bladder suspension. MEDICATIONS: Ambien 5 mg p.o. daily as needed, she takes this infrequently; valsartan 160 mg p.o. daily, Tylenol with Codeine at night as needed for pain. ALLERGIES: HYDROCHLOROTHIAZIDE and ADHESIVE TAPE. FAMILY HISTORY: The patient's father had lung cancer and is . The patient's mother of leukemia at 72. The patient has a brother who had a valve replacement and questionable bypass. The patient has a son with colon cancer. SOCIAL HISTORY: The patient is . The patient has 3 children. 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 The patient quit smoking 12 years ago, has an approximately 20- to [id number] history. The patient drinks alcohol occasionally. The patient retired 12 years ago. The patient's surrogate decision maker will be her , Perez Gomes. REVIEW OF SYSTEMS: A 14-point review of systems was reviewed and was negative, except as above in the HPI. PHYSICAL EXAM: General: The patient is a 68-year-old female who appears stated age, sitting comfortably in the bed, in no acute distress. Vital Signs: At the time of evaluation, temperature 97.9, pulse rate 73, respiratory rate 12, oxygen saturation 98% on room air, blood pressure 167/71. HEENT: Head: Normocephalic, atraumatic. Sclerae anicteric. No conjunctival injection. Nasal mucosa moist. Oral mucosa moist. No pharyngeal erythema, discharge, or exudate. Neck: Supple, nontender. No lymphadenopathy. No carotid bruits auscultated. No JVD. Cardiac: Regular rate and rhythm. No clicks, murmurs, gallops, or rubs. Pulses are 2+ in the dorsalis pedis, posterior tibialis and radial areas. Respiratory: Clear to auscultation bilaterally. No wheezes, rales, or rhonchi. Good air exchange bilaterally. Abdomen: Soft, nontender, nondistended. Bowel sounds present and normoactive in all 4 quadrants. No hepatosplenomegaly. No abdominal bruits auscultated. No hepatojugular reflux. Genitourinary: No suprapubic or CVA tenderness. Skin: Clean, dry, and intact. o rash. Right knee incision is covered with bulky dressing. Neuro: Cranial nerves II through XII intact. No sensation and minimal movement in the bilateral lower extremities. No other focal deficits. Alert and oriented x3. Psychiatric: Pleasant and cooperative. DIAGNOSTIC STUDIES/LAB DATA: Laboratory data preoperatively: White blood cell count 7.8, hemoglobin 13.3, platelet count 379,000. INR is 1.01, aPTT of 32.1. Urine showed 2+ blood and 1+ leukocyte esterase, 3+ bacteria. Culture grew greater than 100,000 colonies of pansensitive E. coli. ASSESSMENT AND PLAN: Impression: Ms. Gomes is a 68-year-old female with past medical history significant only for hypertension and hypercholesterolemia who is currently postoperative for a right total knee arthroplasty. The patient is doing well. 1. Postoperative stay and management per orthopedics. The patient should have PT and OT and pain control. The Hogue should be removed at the earliest time possible. She should have a bowel regimen and her blood pressure medication will be continued at this time with hold parameters as she is currently hypotensive in the postoperative setting. The patient should be monitored for hypotension given her spinal anesthesia. 2. Hypertension. Continue valsartan as above. We will not order a p.r.n. antihypertensive at this time. 3. DVT prophylaxis. Warfarin per orthopedics. 4. FEN. The patient will have a regular unrestricted diet and fluids until she is able to tolerate adequately by mouth. TIME SPENT: Approximately 45 minutes were spent on this consultation, 30 of which were spent [id number] with the patient, obtaining history and physical, and discussing the treatment plan. This plan was discussed with my attending, Dr. Lucila Wagner, and she is in agreement. MARLENA MCDONALD [id number]/[facility] #: [id number] CÉSAR
[2018-10-11] MEDS: traMADol TAB* 50 MG PO SCH ×2 (13:51→20:01)
[2018-10-11] MEDS: ceFAZolin 1 GM ADVAN(*) 1 GM in NS 0.9% 50 ML* 50 ML IVPB SCH (16:17)
[2018-10-11] MEDS ORDERED: Warfarin TAB(*) 10 MG PO ONE (17:00)
[2018-10-11] MEDS ORDERED: Valsartan TAB* 160 MG PO SCH (18:00)
[2018-10-11] MEDS: Valsartan TAB* 160 MG PO SCH (19:05)
[2018-10-11] MEDS: Docusate CAP* 100 MG PO SCH (20:01)
[2018-10-11] MEDS: Magnesium Hydroxide LIQ* 30 ML UDC PO SCH (20:01)
[2018-10-11] MEDS: oxyCODONE TAB* 5 MG TAB PO PRN (20:28)
[2018-10-11] MEDS ORDERED: Acetaminophen / Codeine* #3 (300 MG/30 MG) TAB PO PRN (21:00)
[2018-10-11] MEDS: Acetaminophen TAB* 325 MG PO SCH (22:17)
[2018-10-12] MEDS: ceFAZolin 1 GM ADVAN(*) 1 GM in NS 0.9% 50 ML* 50 ML IVPB SCH ×2 (00:13→07:48)
[2018-10-12] MEDS: D5W 1/2 NS 1000 ML BAG* 1,000 ML IV SCH (00:15)
[2018-10-12] MEDS: traMADol TAB* 50 MG PO SCH ×4 (01:51→19:18)
[2018-10-12] MEDS: oxyCODONE TAB* 5 MG TAB PO PRN ×4 (04:43→17:17)
[2018-10-12 05:32] LABS: Hematocrit 32 % (35-47); Hemoglobin 10.8 g/dL (12.0-16.0); Mean Platelet Volume 7.2 fL (7.4-10.4); Platelet Count 308 10^3/uL (150-450)
[2018-10-12 05:40] LABS: INR 0.97 (0.82-1.09)
[2018-10-12 05:52] LABS: BUN/Creatinine Ratio 17.9 (8-20); Calcium 8.9 mg/dL (8.6-10.3); EGFR African American 130.7 (>60); Potassium 4.1 mmol/L (3.5-5.0)
[2018-10-12] MEDS: Acetaminophen TAB* 325 MG PO SCH ×3 (06:15→21:27)
[2018-10-12] MEDS: Docusate CAP* 100 MG PO SCH ×2 (07:47→19:18)
[2018-10-12] MEDS: Magnesium Hydroxide LIQ* 30 ML UDC PO SCH ×2 (07:48→19:19)
--- NOTE | 2018-10-12 09:36 | PN ---
Progress Note - Progress Note Date of Service: 10/12/18 SOAP: Subjective: []Patient seen at bedside, she has met PT goals and intends to DC home today. Denies chest pain, shortness of breath, dizziness or nausea. Her right knee pain is well controlled. Objective: []Gen: NAD, appears well RLE: Right knee dressing CDI, thigh soft, DF/PF intact, DP2+, sensation intact to light touch distally Calves supple and nontender without erythema, edema or palpable cords Assessment: [] POD 1 sp alessia BEATTY Plan: []WBAT PT/OT Change dressing today prior to DC Plan for DC home today with VNS this afternoon Hyponatremia: resume normal diet, DC IV fluids and recheck within 3 days by home nursing Vital Signs Temp 97.8 F 10/12/18 07:51 Pulse 72 10/12/18 07:51 Resp 16 10/12/18 09:07 BP 145/59 10/12/18 07:51 Pulse Ox 99 10/12/18 07:51 Intake & Output 10/11/18 10/12/18 10/12/18 18:59 06:59 18:59 Intake Total 2850 1816 360 Output Total 3350 2350 Balance -500 -534 360 Intake: IV Fluids 2100 956 ABX - CEFAZOLIN 55 D5W 1/2 NS 901 LR 2000 NS 100ML, Cefazolin 2G 100 Oral 750 860 360 Output: Urine 700 Hogue 2650 2350 Other: # Bowel Movements 0 Laboratory Last Values Hgb 10.8 g/dL (12.0-16.0) L 10/12/18 05:26 Hct 32 % (35-47) L 10/12/18 05:26 Plt Count 308 10^3/uL (150-450) 10/12/18 05:26 MPV 7.2 fL (7.4-10.4) L 10/12/18 05:26 INR (Anticoag Therapy) 0.97 (0.82-1.09) 10/12/18 05:26 Sodium 133 mmol/L (135-145) L 10/12/18 05:26 Potassium 4.1 mmol/L (3.5-5.0) 10/12/18 05:26 Chloride 100 mmol/L (101-111) L 10/12/18 05:26 Carbon Dioxide 27 mmol/L (22-32) 10/12/18 05:26 Anion Gap 6 mmol/L (2-11) 10/12/18 05:26 BUN 10 mg/dL (6-24) 10/12/18 05:26 Creatinine 0.56 mg/dL (0.51-0.95) 10/12/18 05:26 Est GFR ( Amer) 130.7 (>60) 10/12/18 05:26 Est GFR (Non-Af Amer) 108.0 (>60) 10/12/18 05:26 BUN/Creatinine Ratio 17.9 (8-20) 10/12/18 05:26 Glucose 133 mg/dL (70-100) H 10/12/18 05:26 Calcium 8.9 mg/dL (8.6-10.3) 10/12/18 05:26
--- NOTE | 2018-10-12 09:58 | DS ---
Orthopedic Discharge Summary - Discharge Summary Date of Admission:10/11/18 Date of Discharge: 10/12/18 Date of Surgery: 10/11/18 Attending Orthopedic Provider: Dr Dailey Pre-operative Diagnosis: Right knee osteoarthritis Operative Procedure: right total knee replacement, navio assisted Disposition of Patient: home with vns Condition of Patient: stable History: MACKENZIE ORLANDO is a 68 year old F with years of increasingly severe right knee pain. Patient has failed conservative management and has elected to undergo a right total knee replacement Hospital Course: MACKENZIE was admitted to [facility] on 10/11/18. Patient underwent a right total knee replacement without complication followed by a brief recovery in PACU and transfer to the Short Stay Surgical Unit in stable condition. Our hospitalist service, physical therapy also participated in this patients care. Post-op day 1: patient was alert and in no acute distress. Dressing was changed, incision was clean, dry and intact without erythema or discharge. Patient was deemed to be medically and orthopedically stable for discharge. Physical therapy goals were met. Home Medications Medication Instructions Recorded Confirmed Type Acetaminop/Codeine 30 MG TAB* 60 mg PO BEDTIME 10/04/18 10/11/18 History [Tylenol/Codeine 30 MG TAB*] Valsartan 160 mg PO QPM 10/04/18 10/11/18 History Zolpidem Tartrate [Ambien] 5 mg PO QPM PRN 10/04/18 10/11/18 History Aspirin TAB* [Aspirin 325 MG TAB*] 325 mg PO DAILY #30 tab 10/12/18 Rx Docusate CAP* [Colace Cap*] 100 mg PO BID PRN #90 cap 10/12/18 Rx Warfarin TAB(*) [Coumadin TAB(*)] 2 mg PO DAILY 30 Days #90 tab 10/12/18 Rx traMADol TAB* [Ultram*] 50 mg PO Q6H PRN #56 tab MDD 8 10/12/18 Rx Discharge Instructions following Orthopedic Surgery: Activity: * Weight Bearing as tolerated * Continue physical therapy and occupational therapy exercises as shown * Home physical therapy Wound care: * OK to shower on post-op day 3, no bathing, swimming, or submerging wound. * Use gentle soap, pat dry. Cover with gauze, ADRIANE wrap or tape. * Visiting home nurse to do wound checks and remove sergio/ stitches in 2 weeks Nursing to repeat sodium level within 3 days of discharge Call Orthopedic office for: * Increased drainage * Redness * Increased pain * Fever Go to ER with shortness of breath or chest pain. Diet: * Regular diet * Increase fluids and fiber to prevent constipation. * Continue to use stool softeners, call office if no bowel motion within 48 hours. Medications See Home Medication List in your packet for medications that you should take after discharge. DVT Prophylaxis: Medication increases bleeding tendency Coumadin Dosing: * Please note that you have been given 2 mg tablets. * Visiting home nurse to draw blood work for INR on Thursday and for 30 days post op * You will be provided with dose instructions on Mondays and . * If you do not receive dosing instruction on dosing, please call our office right away. Please hina dosing instructions on your calendar as they are provided to you. * Dosin mg daily 10/12 and 10/13. On 10/14 repeat INR blood draw for further dosing instructions. Call orthopedic office if you do not receive dosing instructions. Aspirin Dosin mg once a day until INR is between 2-3 Pain Control: Tramadol 50 mg 1-2 tabs by mouth every 6 hours as needed for pain. Maximum of 8 tabs per day. Take 1 tab for moderate pain and 2 tabs for severe pain. Hold for sedation. Wean off to tylenol alone as soon as pain allows. Max daily dose of tylenol 4000 mg from all sources. Antibiotics are required prior to any dental work. FOLLOW UP: Follow up with Dr. Dailey in 1 month, sooner with concerns. Call for appointment Please call our office with any questions or concerns ([phone])
[2018-10-12] MEDS: Heparin VIAL(*) 5000 UNITS/ML VIAL (FIVE THOUSAND) SUBCUT SCH ×2 (13:30→21:28)
[2018-10-12] MEDS ORDERED: Ketorolac INJ* 30 MG/ML 1 ML VIAL IV PUSH PRN (15:33)
[2018-10-12] MEDS ORDERED: oxyCODONE TAB* 5 MG TAB PO PRN (15:34)
[2018-10-12] MEDS: Valsartan TAB* 160 MG PO SCH (17:17)
[2018-10-13] MEDS: traMADol TAB* 50 MG PO SCH ×2 (01:35→07:19)
[2018-10-13] MEDS: oxyCODONE TAB* 5 MG TAB PO PRN ×2 (03:17→07:20)
[2018-10-13] MEDS: Acetaminophen TAB* 325 MG PO SCH (05:46)
[2018-10-13] MEDS: Heparin VIAL(*) 5000 UNITS/ML VIAL (FIVE THOUSAND) SUBCUT SCH (05:46)
[2018-10-13 06:02] LABS: Hematocrit 32 % (35-47); Hemoglobin 10.9 g/dL (12.0-16.0); Platelet Count 318 10^3/uL (150-450)
[2018-10-13 06:08] LABS: INR 1.39 (0.82-1.09)
[2018-10-13] MEDS: Docusate CAP* 100 MG PO SCH (07:19)
[2018-10-13] MEDS: Magnesium Hydroxide LIQ* 30 ML UDC PO SCH (07:24)
[2018-10-13 07:43] VITALS: BP 107/59
== END 2018-10-13 11:32 | disposition home health service (06) | DRG 470 ==
LOC: AA 05:27 → SSU 10:34
PROVIDERS: ADMIT Orthopaedic Surgery; ATTEND Orthopaedic Surgery
PROC: 8E0YXBZ Computer Assisted Procedure of Lower Extremity (ICD-10-PCS; 2018-10-11)
PROC: 0SRC0J9 Replacement of Right Knee Joint with Synthetic Substitute, Cemented, Open Approach (ICD-10-PCS; principal; 2018-10-11 07:30)
DX: M17.11 Unilateral primary osteoarthritis, right knee (principal); I10 Essential (primary) hypertension; E78.00 Pure hypercholesterolemia, unspecified; G47.00 Insomnia, unspecified; G89.29 Other chronic pain; E66.9 Obesity, unspecified; M54.9 Dorsalgia, unspecified; I95.9 Hypotension, unspecified; R11.0 Nausea; Z80.1 Family history of malignant neoplasm of trachea, bronchus and lung; Z82.49 Family history of ischemic heart disease and other diseases of the circulatory system; Z90.710 Acquired absence of both cervix and uterus; Z90.49 Acquired absence of other specified parts of digestive tract; Z80.6 Family history of leukemia; Z87.891 Personal history of nicotine dependence; Z80.0 Family history of malignant neoplasm of digestive organs; Z83.511 Family history of glaucoma; Z87.440 Personal history of urinary (tract) infections; Z68.30 Body mass index [BMI] 30.0-30.9, adult
CPT/HCPCS: 36415; 80048; 84300; 85014; 85018; 85049; 85610; 88305; 88311; A9270-GY; C1776; G8978-GP-CJ; G8979-GP-CI; J0690; J1100; J1644; J1885; J2001; J2250; J2270; J2704; J2795; J3490